=== PATIENT | female | born 2005 | race Caucasian/White ===

== ENCOUNTER 2025-11-17 19:21 | Emergency (ER) | payer BC, SELFPAY ==
--- OUTSIDE RECORDS SUMMARY | 2025-10-16 09:45 | XMS_ITS | Encounter Summary ---
Author Organization [facility] Address [address] [place] [address] Care Team Providers Care Hospitality Host Name Role Phone Elsewhere, Pcp Primary Care Provider Unavailabl e Reason for Visit * ReasonOnset DateCommentsPre-visit Wnniek9510/16/2025 * Appointment Request (Routine) - AuthorizedSpecialtyDiagnoses / Procedures Referred By ContactReferred To ContactOrthopedic Surgery Referral IDStatusReasonStart DateExpiration DateVisits RequestedVisits [id number]/4/202511/ Encounter Details DateTypeDepartmentCare Team (Latest Contact Info)Zcshfttjobn74/25/2025 9:45 AM CSTClinical Communication Virtual Review in [place], [place] [address] [place] [address] Pre-visit Intake Social History Tobacco UseTypesPacks/DayYears UsedDateSmoking Tobacco: NeverPassive Smoke Exposure: CurrentSmokeless Tobacco: NeverAlcohol UseStandard Drinks/WeekComments Never0 (1 standard drink = 0.6 oz pure alcohol)[facility] UtilitiesAnswerDate Recorded In the past 12 months has the electric, gas, oil, or water company threatened to shut off services in your home?No04/20/2025Humiliation, Afraid, Rape, and Kick questionnaireAnswerDate RecordedWithin the last year, have you been afraid of your partner or ex-partner?No04/20/2025Within the last year, have you been humiliated or emotionally abused in other ways by your partner or ex-partner?No 04/20/2025Within the last year, have you been kicked, hit, slapped, or otherwise physically hurt by your partner or ex-partner?No04/20/2025Within the last year, have you been raped or forced to have any kind of sexual activity by your part ner or ex-partner?No04/20/2025Hunger Vital SignAnswerDate RecordedWithin the past 12 months, you worried that your food would run out before you got the money to buymore.Never true04/20/2025Within the past 12 months, the food you bought just didn't last and you didn't have money to get more.Never true 04/20/2025PRAPARE - TransportationAnswerDate RecordedIn the past 12 months, has lack of transportation kept you from medical appointments or from getting medications?No04/20/2025In the past 12 months, has lack of transportation kept you from meetings, work, or from getting things needed for daily living?No 04/20/2025Postpartum DepressionAnswerDate RecordedPHQ-9 Total Score (max 27)2 06/12/2025Housing StabilityAnswerDate RecordedWhat is your living situation today?I have a steady place to live04/20/2025EducationAnswerDate RecordedWhat is the highest level of school you have completed or the highest degree you have received?Associate degree: occupational, technical, or vocational program 2CommentsUnknownSex and Gender InformationValueDate RecordedSex Assigned at PwxcpWfscol70/06/2022 5:37 PM CSTLegal LtiPcdcjx07/04/2018 6:08 PM CDTGender RxueboxiClritn40/06/2022 5:37 PM CSTSexual OrientationStraight 01/25/2022 5:37 PM CSTdocumented as of this encounter Plan of Treatment Not on file documented as of this encounter Visit Diagnoses Not on filedocumented in this encounter Additional Health Concerns AssessmentNoted TimePHQ-9 Depression Total Score: 5:14 PM CDT documented as of this encounter Care Teams Team MemberRelationshipSpecialtyStart DateEnd Date Elsewhere, Pcp PCP - GeneralInternal Medicine03/21/25documented as of this encounter
--- OUTSIDE RECORDS SUMMARY | 2025-10-19 09:13 | XMS_ITS | Encounter Summary ---
Author Organization [facility] Address [address] [place] [address] Care Team Providers Care Filter Worker Name Role Phone Elsewhere, Pcp Primary Care Provider Unavailabl e Reason for Referral * Outpatient (Routine) - ClosedSpecialtyDiagnoses / ProceduresReferred By ContactReferred To Contact Diagnoses Aftercare Developmental Dislocation Hip Dislocation Hip Dysplasia Developmental Left Procedures DX Hip And Pelvis Left 4+ Views Lenin Ugalde M.D. [address] [place] [address] Phone: tel: fax: [facility] Referral IDStatusReasonStart DateExpiration DateVisits RequestedVisits [id number]/4/202511/4/202611 SCALER Reason for Visit * Outpatient (Routine) - ClosedSpecialtyDiagnoses / ProceduresReferred By ContactReferred To Contact Diagnoses Aftercare Developmental Dislocation Hip Dislocation Hip Dysplasia Developmental Left Procedures DX Hip And Pelvis Left 4+ Views Lenin Ugalde M.D. [address] [place] [address] Phone: tel: fax: [facility] Referral IDStatusReasonStart DateExpiration DateVisits RequestedVisits [id number]/4/202511/4/202611 Encounter Details DateTypeDepartmentCare Team (Latest Contact Info)Hcucylztkro91/28/2025 9:13 AM BARK SCALER - 10/19/2025 11:59 PM CSTHospital Encounter Department of Radiology, [facility], in [place], [place] [address] [place] [address] Lenin Ugalde M.D. [address] [place] [address] Aftercare Developmental Dislocation Hip; Dislocation Hip Dysplasia Developmental Left Discharge Disposition: Home or Self Care Social History Tobacco UseTypesPacks/DayYears UsedDateSmoking Tobacco: NeverPassive Smoke Exposure: CurrentSmokeless Tobacco: NeverAlcohol UseStandard Drinks/WeekComments Never0 (1 standard drink = 0.6 oz pure alcohol)[facility] UtilitiesAnswerDate Recorded In the past 12 months has the [employer], gas, oil, or water [employer] threatened to shut off services in your [...] received?Associate degree: occupational, technical, or vocational program 01/25/2022CommentsUnknownSex and Gender InformationValueDate RecordedSex Assigned at DuacrYpsrrh87/06/2022 5:37 PM CSTLegal LxhKtdrvk38/04/2018 6:08 PM CDTGender DretkgxwAxbexv98/06/2022 5:37 PM CSTSexual OrientationStraight 01/25/2022 5:37 PM CSTdocumented as of this encounter Medications at Time of Discharge MedicationSigDispense QuantityRefillsLast FilledStart DateEnd Date acetaminophen (TylenoL) 500 mg tablet Take 2 tablets (1,000 mg total) by mouth every 6 (six) hours as needed for pain. 04/20/2025 celecoxib (CeleBREX) 200 mg capsule Take 1 capsule (200 mg total) by mouth daily. 30 capsule 11/16/2025 10:36 AM CST dextroamphetamine-amphetamine (Adderall) 10 mg tablet Take 10 mg by mouth 2 (two) times a day.08/04/2025 etonogestreL (Nexplanon) 68 mg subdermal implant Inject 1 each under the skin continuously.07/31/2020 hydrOXYzine (Atarax) 25 mg tablet Take 1 tablet (25 mg total) by mouth every 6 (six) hours as needed for anxiety. 6 tablet 04/24/2025 4:42 PM CDT04/24/2025 ondansetron ODT (Zofran-ODT) 8 mg disintegrating tablet Dissolve 8 mg in the mouth as needed for nausea.08/03/2025 oxyCODONE (Roxicodone) 5 mg immediate release tablet Indications:Acute Pain ExceptionTake 1 tablet (5 mg total) by mouth every 4 (four) hours as needed for severe pain or score 7-10 of10. 5 tablet 11/16/2025 10:36 AM CST11/16/2025 propranoloL (InderaL LA) 120 mg 24 hr capsule Take 1 capsule (120 mg total) by mouth daily. 90 capsule sennosides (senna) 8.6 mg tablet Take 1 tablet (8.6 mg total) by mouth daily for 15 days. 100 tablet /08/2026 traMADoL (Ultram) 50 mg tablet Indications:Acute Pain ExceptionTake 1 tablet (50 mg total) by mouth every 6 (six) hours as needed for moderate pain or score 4-6 of 10. 10 tablet 11/16/2025 10:36 AM 11/16/2025 ubrogepant (Ubrelvy) 100 mg tablet tablet Indications:Migraine HeadacheTake 1 tablet (100 mg total) by mouth as needed for migraine. May repeat dose once after at least 2hours if migraine unresolved. Do not exceed 200 mg in 24 hours. Max 8 days per month 10 tablet ibuprofen 200 mg tablet Take 600 mg by mouth every 6 (six) hours as needed for pain.11/17/2025 multivitamin-minerals tablet Take 1 tablet by mouth daily.11/17/2025documented as of this encounter Plan of Treatment Not on file documented as of this encounter Procedures Procedure NamePriorityDate/TimeAssociated DiagnosisCommentsDX HIP AND PELVIS LEFT 4+ VIEWSRAD - Routine (most inpatients and all outpatients)10/19/2025 9:32 AM BARK SCALER Aftercare Developmental Dislocation Hip Dislocation Hip Dysplasia Developmental Left documented in this encounter Results * DX Hip And Pelvis Left 4+ Views (10/19/2025 9:32 AM BARK SCALER)Anatomical Region LateralityModalityLower Extremity, Pelvis, Hip, Musculoskeletal RST LOS, Musculoskeletal ARZ LOS, Muskuloskeletal FLALOSLeftDigital RadiographySpecimen (Source)Anatomical Location / LateralityCollection Method / VolumeCollection TimeReceived Time Impressions 10/19/2025 10:00 AM BARK SCALER Postoperative changes of periacetabular osteotomy left hip with healing changes since 06/21/2025. 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 Postoperative changes in the right hip from right NIRAV. Small osseous fragment lateral to the right femoral head. Narrative 10/19/2025 10:00 AM BARK SCALER EXAM: DX HIP AND PELVIS LEFT 4+ VIEWS Procedure Note Samuel Hobson M.D. - 10/19/2025 EXAM: DX HIP AND PELVIS LEFT 4+ VIEWS IMPRESSION: Postoperative changes of periacetabular osteotomy left hip with healingchanges since 06/21/2025. 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 Small osseousfragment lateral to the right femoral head. Authorizing ProviderResult TypeResult StatusRaangelito Ugalde M.D.IMG DIAGNOSTIC IMAGING PROCEDURESFinal Result documented in this encounter Visit Diagnoses Diagnosis Aftercare Developmental Dislocation Hip Dislocation Hip Dysplasia Developmental Left documented in this encounter Additional Health Concerns AssessmentNoted TimePHQ-9 Depression Total Score: 5:14 PM CDT documented as of this encounter Care Teams Team MemberRelationshipSpecialtyStart DateEnd Date Elsewhere, Pcp PCP - GeneralInternal Medicine03/21/25documented as of this encounter
--- OUTSIDE RECORDS SUMMARY | 2025-10-19 10:45 | XMS_ITS | Encounter Summary ---
Author Organization [facility] Address [address] [place] [address] Care Team Providers Care General Education Professor Name Role Phone Elsewhere, Pcp Primary Care Provider Unavailabl e Reason for Visit * ReasonCommentsPain * Outpatient (Routine) - ClosedSpecialtyDiagnoses / ProceduresReferred By ContactReferred To ContactOrthopedic Surgery Diagnoses Aftercare Developmental Dislocation Hip Dislocation Hip Dysplasia Developmental Left Lenin Ugalde M.D. [address] [place] [address] Phone: tel: fax: Lenin Ugalde M.D. [address] [place] [address] Phone: tel: fax: Referral IDStatusReasonStart DateExpiration DateVisits RequestedVisits [id number]/4/20252/3/202711 Encounter Details DateTypeDepartmentCare Team (Latest Contact Info)Zswfygvxfci55/28/2025 10:45 AM CSTOffice Visit Department of Orthopedic Surgery in [place], [place] [address] [place] [phone] Lenin Ugalde M.D. [address] [place] [phone] Pain Hip Left (Primary Dx); Aftercare Developmental Dislocation Hip; Dislocation Hip Dysplasia Developmental Left Social History Tobacco UseTypesPacks/DayYears UsedDateSmoking Tobacco: NeverPassive Smoke Exposure: CurrentSmokeless Tobacco: NeverAlcohol UseStandard Drinks/WeekComments Never0 (1 standard drink = 0.6 oz pure alcohol)[facility] UtilitiesAnswerDate Recorded In the past 12 [...] 2CommentsUnknownSex and Gender InformationValueDate RecordedSex Assigned at SsddjSomxea12/06/2022 5:37 PM CSTLegal YulForons97/04/2018 6:08 PM CDTGender VhuwjhzsLcdqry32/06/2022 5:37 PM CSTSexual OrientationStraight 01/25/2022 5:37 PM CSTdocumented as of this encounter Consult Notes * Lenin Ugalde M.D. - 10/19/2025 10:45 AM CST SUBJECTIVE REASON FOR VISIT Post NIRAV follow-up evaluation HISTORY OF PRESENT ILLNESS Cyndee Martin is a 20 y.o. female who presents 6 months from left periacetabular osteotomy. Doing great. Pain reported: Minimal. OBJECTIVE PHYSICAL EXAM General: Awake and alert. No acute distress Skin: Well-healed incision Neurologic: 5/5 hip flexion, 5/5 quad strength no numbness. Extremities: About 20?? of internal rotation bilaterally. This is a 90?? IMAGING Plain radiographs show healed periacetabular osteotomy ASSESSMENT / PLAN Doing very well. Strength has returned 100%. No numbness. We will return to all activities as tolerated. She will call to set up hardware removal when ready. We had a good discussion regarding ongoing care, activity recommendations, and follow-up. All questions were answered. ER/WAITRESS BAR documented in this encounter Miscellaneous Notes * Addendum Note - Daja Berry R.N. - 10/19/2025 10:45 AM CSTAddended by: DAJA BERRY on: 10/19/2025 03:36 PM Modules accepted: Orders ER/WAITRESS BAR documented in this encounter Plan of Treatment Not on file documented as of this encounter Visit Diagnoses Diagnosis Pain Hip Left- Primary Aftercare Developmental Dislocation Hip Dislocation Hip Dysplasia Developmental Left documented in this encounter Additional Health Concerns AssessmentNoted TimePHQ-9 Depression Total Score: 5:14 PM CDT documented as of this encounter Care Teams Team MemberRelationshipSpecialtyStart DateEnd Date Elsewhere, Pcp PCP - GeneralInternal Medicine03/21/25documented as of this encounter
--- OUTSIDE RECORDS SUMMARY | 2025-11-16 05:44 | XMS_ITS | Encounter Summary ---
Author Organization [facility] Address [address] [place] [address] Care Team Providers [facility] Owner Name Role Phone Elsewhere, Pcp Primary Care Provider Unavailabl e Reason for Visit * Auth/Cert (Routine)SpecialtyDiagnoses / ProceduresReferred By ContactReferred To Contact Diagnoses Aftercare Removal Orthopedic Hardware Postop Non-Injury Aftercare Removal Orthopedic Hardware Postop Non-Injury [Z47.2] Procedures ND RMVL IMPLANT DEEP REMOVAL HARDWARE PELVIS Lenin Ugalde M.D. [address] [place] [address] Phone: tel: fax: Referral IDStatusReasonStart DateExpiration DateVisits RequestedVisits [id number] Encounter Details DateTypeDepartmentCare Team (Latest Contact Info)Whipqbtmsxy31/26/2025 5:44 AM ELEMENTARY SCHOOL MUSIC TEACHER - 11/17/2025 12:03 PM CSTHospital Encounter [facility], [facility] Floor [address] [place] [address] Johnnie Hong M.D. [address] [place] [address] Discharge Disposition: Home or Self Care Social History Tobacco UseTypesPacks/DayYears UsedDateSmoking Tobacco: NeverPassive Smoke Exposure: CurrentSmokeless Tobacco: NeverAlcohol UseStandard Drinks/WeekComments Never0 (1 standard drink = 0.6 oz pure alcohol)Humiliation, Afraid, Rape, and Kick questionnaireAnswerDate RecordedWithin the last year, have you been afraid of your partner or ex-partner?No11/16/2025Within the last year, have you been humiliated or emotionally abused in other ways by your partner or ex-partner?No 11/16/2025Within the last year, have you been kicked, hit, slapped, or otherwise physically hurt by your partner or ex-partner?No11/16/2025Within the last year, have you been raped or forced to have any kind of sexual activity by your part ner or ex-partner?No11/16/2025Hunger Vital SignAnswerDate RecordedWithin the past 12 months, you worried that your food would run out before you got the money to buymore.Never true11/16/2025Within the past 12 months, the food you bought just didn't last and you didn't have money to get more.Never true 11/16/2025PRAPARE - TransportationAnswerDate RecordedIn the past 12 months, has lack of transportation kept you from medical appointments or from getting medications?No11/16/2025In the past 12 months, has lack of transportation kept you from meetings, work, or from getting things needed for daily living?No 11/16/2025HC UtilitiesAnswerDate RecordedIn the past 12 months has the [employer], gas, oil, or water company threatened to shut off services in your home?No11/16/2025Postpartum DepressionAnswerDate RecordedPHQ-9 Total Score (max 27)Housing StabilityAnswerDate RecordedWhat is your living situation today?I have a steady place to live11/16/2025EducationAnswerDate RecordedWhat is the highest level of school you have completed or the highest degree you have received?Associate degree: occupational, technical, or vocational program 2CommentsNoSex and Gender InformationValueDate RecordedSex Assigned at JhuahAedyad96/06/2022 5:37 PM CSTLegal UzyVnnykl39/04/2018 6:08 PM CDTGender FiufpdnlFpnjvw34/06/2022 5:37 PM CSTSexual OrientationStraight 01/25/2022 5:37 PM CSTdocumented as of this encounter Last Filed Vital Signs Vital SignReadingTime TakenCommentsBlood Rtkerkex999/80101/18/2025 11:26 AM ELEMENTARY SCHOOL MUSIC TEACHER Imxiu300711/17/2025 11:26 AM TROVtqenchypyq08.8 ??C (98.2 ??F)11/17/2025 9:50 AM CSTRespiratory Xjee445601/18/2025 11:26 AM CSTOxygen Llpebrofxa25%11/17/2025 11:26 AM CSTInhaled Oxygen Concentration--Poacem42.3 kg (196 lb 13.9 oz)11/16/2025 6:52 AM SHKVlrbjh639 cm (5' 2.6)11/16/2025 6:52 AM CSTBody Mass Index35.32 11/16/2025 6:52 AM CSTdocumented in this encounter Functional Status * Patient VerificationQuestionAnswerDate of AssessmentAuthorBlood transfusion or in past 5 months?No11/16/2025 7:03 AM Fiordaliza Scott RRosoeveltNRoosevelt Beta David AdministeredNot xdpztvhoon15/26/2025 7:03 AM Fiordaliza Scott RDev. * Obstructive Sleep Apnea ScreenQuestionAnswerDate of AssessmentAuthorPatient has a diagnosis of obstructive sleep apnea? 7:03 AM Fiordaliza Scott RRooseveltNRoosevelt * Vital SignsQuestionAnswerDate of AssessmentAuthorRichmond Agitation Sedation Scale (RASS) 11:26 AM Priya Morales R.N. * Ananda ScaleQuestionAnswerDate of AssessmentAuthorSensory Perceptions4 11/17/2025 7:57 AM Priya Morales R.N.Qldylnhg963/27/2025 7:57 AM ELEMENTARY SCHOOL MUSIC TEACHER Priya Edwards R.N.Rjzlzwau217/27/2025 7:57 AM Priya Morales R.N. Tgkrvfzm886/27/2025 7:57 AM Priya Morales R.N.Svpczfnzd127/27/2025 7:57 AM Priya Morales R.N.Friction and Qnuxf11301/18/2025 7:57 AM Priya Morales R.N.Ananda Scale Vevem332011/17/2025 7:57 AM Priya Morales R.N. * Psychiatric Advance DirectiveQuestionAnswerDate of AssessmentAuthorAdvance DirectivePatient does not have advance directive, does not want information 11/16/2025 7:00 PM Fiordaliza Peter R.N. * Suicide RiskQuestionAnswerDate of AssessmentAuthorIs patient at risk for suicide?No11/16/2025 7:03 AM Fiordaliza Scott R.N. * Delirium Triage Screen (DTS)QuestionAnswerDate of AssessmentAuthorAsk the patient to spell LUNCH backwards.0-1 error - DTS negative. End of assessment.11/17/2025 7:57 AM Priya Morales R.N. * Activity/MobilityQuestionAnswerDate of AssessmentAuthorPreventative Skin ActionOther (Comment)11/17/2025 7:57 AM Priya Morales R.N. * HygieneQuestionAnswerDate of AssessmentAuthorOral CareBrush teeth11/16/2025 10:03 PM Dilia Gaitan * Assistive DevicesQuestionAnswerDate of AssessmentAuthorAssistive Devices Dudxenvsju70/26/2025 7:03 AM Fiordaliza Scott R.N. * NPOQuestionAnswerDate of AssessmentAuthorTime of last wiifjg0429699/26/2025 6:55 AM Fiordaliza Scott R.N.Date of last xffjru7377860/26/2025 6:55 AM Fiordaliza Scott R.N.Date of last kmtpk9269232/26/2025 6:55 AM Fiordaliza Ashraf R.N.Time of last ijgfz5696047/26/2025 6:55 AM CSTHamilton, Fiordaliza S, R.N. * Height and WeightQuestionAnswerDate of AssessmentAuthorBMI (Calculated)35.3 11/16/2025 6:52 AM Fiordaliza Scott R.N. * Tobacco useQuestionAnswerDate of AssessmentAuthorHave you smoked any form of tobacco in the last 30 days?No11/16/2025 7:03 AM Fiordaliza Scott R.N. * STOP-BANG QuestionnaireQuestionAnswerDate of AssessmentAuthorDo you snore loudly (loud enough to be heard through closed doors or your bed-partner elbows you for snoring at night)? 7:03 AM Fiordaliza Scott RRooseveltN.Do you often feel tired, fatigued, or sleepy during the daytime (such as falling asleep during driving or talking to someone)? 7:03 AM Fiordaliza Ashraf R.N.Has anyone observed you stop breathing or choking/gasping during your sleep? 7:03 AM Fiordaliza Scott RRooseveltN.Do you have or are being treated for high blood pressure? 7:03 AM Fiordaliza Scott R.N.Body Mass Index more than 35 kg/m2? 7:03 AM Fiordaliza Scott RRooseveltN.Age older than 50? 7:03 AM Fiordaliza Ashraf RRooseveltN.Is your shirt collar 16 inches/40cm or larger?0 11/16/2025 7:03 AM Fiordaliza Scott RRooseveltN.Gender = Male? 7:03 AM Fiordaliza Scott RRooseveltNRooseveltSTOP-BANG Total Bkipc30101/17/2025 7:03 AM Fiordaliza Ashraf RRooseveltN. * Modified Angeles ScoreQuestionAnswerDate of AssessmentAuthorMotor Activity2 11/16/2025 11:32 AM Laure Higuera R.N.Ivjwfhixhvm439/26/2025 11:32 AM Laure Higuera R.N.Llqkzshzswqay456/26/2025 11:32 AM Laure Higuera R.N.Oxygen Oxdvwfsxeq847/26/2025 11:32 AM Laure Higuera R.N.Modified Angeles Pztff4249/26/2025 11:32 AM Laure Higuera R.N.Systolic BP2 11/16/2025 11:32 AM Laure Higuera R.N. * Abuse IndicatorsQuestionAnswerDate of AssessmentAuthorIs there a history, concern, or exposure to physical, emotional, sexual, financial abuse, neglect or domestic violence?No11/16/2025 7:03 AM Fiordaliza Scott R.N. Information IdgjbaIzuajjj00/26/2025 7:03 AM Fiordaliza Scott R.N. * BMI: Desirable <25, High Risk >30AnswerDate of UkpctgyuyaVknaxcPkpo72/26/2025 6:52 AM Fiordaliza Scott R.N. * Fall RiskQuestionAnswerDate of AssessmentAuthorHave you fallen within the last year or do you fear you might fall?Yes11/16/2025 7:05 AM Fiordaliza Scott R.N. * Bedside Mobility Assessment Tool (BMAT)QuestionAnswerDate of AssessmentAuthor Mobility Level (calculated)Mobility Level 7:57 AM Priya Morales R.N.Mobility Assessment Level 1: Sit and BdxkkFzcc42/27/2025 7:57 AM Priya Morales R.N.Mobility Assessment Level 2: Stretch and PointPass 11/17/2025 7:57 AM Priya Morales R.N.Mobility Assessment Level 3: Stand Pass11/17/2025 7:57 AM Priya Morales R.N.Mobility Assessment Level 4: Modified AtwkjlypckotZxxj34/27/2025 7:57 AM Priya Morales R.N.Mobility Level 3 DevicesL3 - Gait belt;L3 - Kjsdlh6311/17/2025 7:57 AM Priya Morales R.N. * Additional Fall Risk IndicationQuestionAnswerDate of AssessmentAuthor Clinically assessed at higher fall risk?No11/17/2025 7:57 AM Priya Morales R.N. * Pain AssessmentQuestionAnswerDate of AssessmentAuthorResponse to Interventions Reports no side tqalhxk9011/17/2025 5:14 AM Dilia Gaitan LocationHip 11/16/2025 11:08 AM Erika Maldonado R.N., C.M.S.R.N.Pain Orientation Left11/16/2025 11:08 AM Erika Maldonado R.N., C.M.S.R.N.Pain InterventionsMedication (See MAR)11/17/2025 11:18 AM Priya Morales R.N. Patient's Stated Pain Zqar52401/17/2025 7:35 PM Dilia Gaitan Type Surgical pain11/16/2025 11:08 AM Erika Maldonado R.N., C.M.S.R.N. * Pain ScoreAnswerDate of OflfuckkuwNgjpow928/27/2025 11:18 AM Priya Morales R.N. * Sedation ScalesQuestionAnswerDate of AssessmentAuthorSedation Scale Used Hernandez Agitation Sedation Scale11/17/2025 7:57 AM Priya Morales R.N. * Kaley Maya Fall Risk Assessment ScaleQuestionAnswerDate of AssessmentAuthor Last Known Lppj67001/18/2025 7:57 AM Priya Morales R.N.Mobility0 11/17/2025 7:57 AM Priya Morales R.N.Ttdcilqvidp446/27/2025 7:57 AM Priya Jack R.N.Mental Status/LOC/Wjphbrmez093/27/2025 7:57 AM Priya Jack R.N.Toileting Ptndb45101/18/2025 7:57 AM Priya Morales R.N.Volume/Electrolyte Fncara947/27/2025 7:57 AM Priya Morales R.N. Communication/Rpviypo428 7:57 AM Priya Morales R.N.Behavior0 11/17/2025 7:57 AM Priya Morales R.N.[facility] Fall Risk Total6 11/17/2025 7:57 AM Priya Morales R.N. * Fall Risk Scale and AssessmentsQuestionAnswerDate of AssessmentAuthorFall Risk ScaleMarblehead Francesco11/17/2025 7:57 AM Priya Morales R.N. * Patient PreparationQuestionAnswerDate of AssessmentAuthorPre-Procedure Prep Antimicrobial shower/wipes complete in AM;Antimicrobial shower/wipes complete in PM11/16/2025 7:03 AM Fiordaliza Scott R.N. * Early Screen for Discharge PlanningQuestionAnswerDate of AssessmentAuthorSelf- rated Walking Ydzyqicppn984/26/2025 7:05 PM Fiordaliza Peter R.N.Age in Mfmfy33201/17/2025 7:05 PM Fiordaliza Peter R.N.Prior Living Status3 11/16/2025 7:05 PM Fiordaliza Peter R.N.[place] Disability Score0 11/16/2025 7:05 PM Fiordaliza Peter R.N.ESDP Bqcwq94701/17/2025 7:05 PM Fiordaliza Peter R.N. * Exparel?? / Zynrelef??QuestionAnswerDate of AssessmentAuthorHave you had a procedure outside of [facility] in the past 4 days? (Select Yes if the patient iswearing an Exparel?? or a Zynrelef?? armband.)No11/16/2025 7:03 AM Fiordaliza Scott R.N. * Fall Prevention InterventionsQuestionAnswerDate of AssessmentAuthorUniversal Fall Precautions in PdtwqCsm16/27/2025 7:57 AM Priya Morales R.N. Medication InterventionsDangle at ewaugql5311/17/2025 7:57 AM Priya Morales R.N.Communication/Sensory InterventionsAmbient light11/17/2025 7:57 AM Priya Morales R.N.Last Known Fall IasjauwmpjfbwTGI40/27/2025 7:57 AM Priya Morales R.N. * Delirium Prediction Tool ScoreQuestionAnswerDate of AssessmentAutrDelicape fear/harnett health Surgical Score (Commercial Teller Use Only)0.02101/18/2025 6:00 AM CSTSystem, Provider Not In documented as of this encounter Mental Status * Brayan Coma ScaleQuestionAnswerEntry DateAuthorEye Fpqqopm447/27/2025 7:57 AM Priya Morales R.N.Best Motor Gshknyve552/27/2025 7:57 AM Priya Morales R.N.Best Verbal Soughexq993/27/2025 7:57 AM Priya Morales R.N. Brayan Coma Scale Ygmzr4446/27/2025 7:57 AM Priya Morales R.N. documented in this encounter Discharge Summaries * Nga Ludwig M.D. - 11/17/2025 7:29 AM CST DISCHARGE SUMMARY BRIEF OVERVIEW Hospital: [facility] Discharge Provider: Johnnie Hong M.D. Primary Team: [facility] Orthopedic Surgery - [facility] Primary Care Providers: Elsewhere, Pcp (General) No address on file Primary Care Provider Phone Number: None Primary Care Provider Fax Number: None Other Providers: None Admission Date: 11/16/2025 Discharge Date: 11/17/2025 PRINCIPAL DIAGNOSIS Removal of hardware, pelvis SECONDARY DIAGNOSES Urinary retention - patient admitted for urinary retention postop. Has history of this issue with post-anesthesia care. Voiding on her own by POD1 AM. Surgery Information This Encounter Past Procedures (11/17/2024 to Today) Date Procedures Providers Loc / Dept 11/16/2025 REMOVAL HARDWARE PELVIS. Johnnie Hong M.D.Ray, Gabrielle S, M.D. [facility] OR DISCHARGE DISPOSITION Home or Self Care [1] ACTIVE ISSUES REQUIRING FOLLOW UP None OUTPATIENT FOLLOW UP For appointment details refer to your Patient Appointment Guide. TEST RESULTS PENDING AT DISCHARGE Pending Labs None DETAILS OF HOSPITAL STAY REASON FOR ADMISSION Aftercare Removal Orthopedic Hardware Postop Non-Injury Pain Hip Left HOSPITAL COURSE Surgery Information This Encounter Past Procedures (11/17/2024 to Today) Date Procedures Providers Loc / Dept 11/16/2025 REMOVAL HARDWARE PELVIS. Johnnie Hong M.D.Ray, Gabrielle S, M.D. [facility] OR Cyndee Ratliff Veronica was taken to the operative room by Johnnie Hong,* for the procedure listed above. The intraoperative as well as the immediate postoperative course were uncomplicated. Forfurther details of the surgery please see the operative note. The patient was transferred from the PACU to the general care floor for continued observation and monitoring. She progressed in the usual post-operative fashion without complications. The patient was treated with perioperative IV antibiotics. She was given liquids by mouth and eventually advanced as tolerated towards a more general diet. Her pain was well controlled with oral pain medications. Physical therapy / Occupational therapy was consulted for assistance with mobilization and gait training. She was mobilizing without difficulty and was compliant with any activity restrictions. Her incision remained intact with no concerns. Her bowel and bladder function were acceptable. She then met criteria for discharge and was later dismissed from the hospital. For any further details please see the [facility] orthopedic surgery progress note and any other co-managing teams dated 11/17/2025. CONSULTS ORDERED DURING THIS ADMISSION None CONDITION AT DISCHARGE stable Discharge instructions were provided to the patient and caregiver(s). Total time spent in discharge services today: 20 minutes. ENTARY SCHOOL MUSIC TEACHER ENTARY SCHOOL MUSIC TEACHER documented in this encounter Discharge Instructions * Attachments The following attachments cannot be sent through Care Everywhere. * Celecoxib (By mouth) (Dutch) * Oxycodone, Rapid Release (By mouth) (Dutch) * Senna (By mouth) (Dutch) * Tramadol (By mouth) (Dutch) documented in this encounter Medications at Time of Discharge MedicationSigDispense QuantityRefillsLast FilledStart DateEnd Date acetaminophen (TylenoL) 500 mg tablet Take 2 tablets (1,000 mg total) by mouth every 6 (six) hours as needed for pain. 04/20/2025 celecoxib (CeleBREX) 200 mg capsule Take 1 capsule (200 mg total) by mouth daily. 30 capsule 11/16/2025 10:36 AM [facility] dextroamphetamine-amphetamine (Adderall) 10 mg tablet Take 10 [...] 7-10 of10. 5 tablet 11/16/2025 10:36 AM [facility]11/16/2025 propranoloL (InderaL LA) 120 mg 24 hr [...] of 10. 10 tablet 11/16/2025 10:36 AM [facility]11/16[facility]2025 ubrogepant (Ubrelvy) 100 mg tablet tablet Indications:Migraine HeadacheTake 1 tablet (100 mg total) by mouth as needed for migraine. May repeat dose once after at least 2hours if migraine unresolved. Do not exceed 200 mg in 24 hours. Max 8 days per month 10 tablet documented as of this encounter Progress Notes * Gonsalo Holman M.S., O.T. - 11/17/2025 8:23 AM CST Spoke with patient at bedside this morning. Patient was already dressed in which she reported she had completed independently. Patient had no concerns with return to completing ADL/IADL independently. No concerns reported for homegoing, has adequate support from family upon return home. OT will sign off at this time. Trista Holman M.S., O.T. ENTARY SCHOOL MUSIC TEACHER * Nga Ludwig M.D. - 11/17/2025 7:25 AM CST SUBJECTIVE HISTORY OF PRESENT ILLNESS Patient doing well on examination. Pain well-controlled on current multimodal regimen. Took 1 oxycodone for pain control. Ambulating without issue. Was admitted overnight because could not void postoperatively; this happened in her last postop course and has a history of retention post-anesthesia. She has now just voided on her own this AM ykihg395mc. She is pleased she was able to regain the ability to void. OBJECTIVE VITAL SIGNS Temperature: [36.4 ??C-37 ??C] 36.7 ??C Heart Rate: [64-80] 80 Resp Rate: [11-17] 16 Blood Pressure: (106-132)/(60-94) 106/60 SpO2: [94 %-100 %] 97 % Flow Rate (L/min): [0 L/min] 0 L/min Pulse Rate: [49-72] 69 I/O last 3 completed shifts: In: 1955.7 [P.O.:986] Out: 3155 [Urine:3150; Blood:5] PHYSICAL EXAMINATION General: NAD. Neuro: Alert. Answers questions appropriately. Cardiovascular: Regular rate. Respiratory: Regular respiratory rate. Normal work of breathing. Musculoskeletal: On examination of the operative lower extremity, surgical dressings clean, dry, and intact without strikethrough. Fires quadriceps, tibialis anterior, EHL, EDL, FHL, FDL, gastrocsoleus complex, and peroneals. Sensation intact to gross light touch in the deep peroneal, superficial pe roneal, tibial, saphenous, and sural distributions. Bilateral calves are soft and nontender. Toes warm and well-perfused with capillary refill less than 2 sec. Palpable dorsalis pedis pulse. DIAGNOSTICS Recent Labs 11/16/25 0655 WBC 8.1 HGB 13.6 HCT 39.5 MCV 83.9 PLT 340 Recent Labs 11/16/25 0655 CREATININE 0.66 No results for input(s): INR, PT in the last 48 hours. No results for input(s): SEDRATE, CRP in the last 48 hours. ASSESSMENT / PLAN SURGICAL DIAGNOSIS/PROCEDURE(S): S/p removal of hardware, pelvis ACTIVE ISSUES: 1) urinary retention - appreciate urology assistance as urology techs continue to help with methodsto assist voiding. Activity/Weightbearing: WBAT operative lower extremity VTE Prophylaxis: SCDs; ASA 81mg PO BID x 6 weeks following surgery Antibiotics: Completed periop Dressing: Managed by service Imaging: Completed POD #0 Pain: Multimodal regimen per orders Diet: Discharge Diet for Adults Adult Diet Regular Anticipated Disposition: Home DC today Nga Ludwig M.D. Please contact the SpeakingPal service with any questions or concerns regarding this patient. If outside of 06:00 - 18:00 on weekdays or any time on the weekend, please contact the Orthopedic Surgery house resident insulation worker interior surface at [phone]. ENTARY SCHOOL MUSIC TEACHER * Francisca Morgan Pharm.DRoosevelt, R.Ph., BCPS - 11/16/2025 8:29 PM CST Images from the original note were not included. Admission Medication History Note Adherence issues: No concerns Medication list source: Patient, Family member, and Pharmacy or dispense records Medication related information: - Adderall is morning and early afternoon dosing - multivitamin is hair/skin/nails formula Prior to Admission Medications Med List Status: Pharmacy/RN Complete Set By: Francisca Morgan Pharm.D., R.Ph., BCPS at 11/16/2025 8:26 PM Taking? Last Dose Informant Start Date End Date LT acetaminophen (TylenoL) 500 mg tablet Past Month -- 04/20/25 -- Take 2 tablets (1,000 mg total) by mouth every 6 (six) hours as needed for pain. dextroamphetamine-amphetamine (Adderall) 10 mg tablet 11/15/2025 at Evening -- 08/04/25 -- Take 10 mg by mouth 2 (two) times a day. etonogestreL (Nexplanon) 68 mg subdermal implant -- -- 07/31/20 -- Inject 1 each under the skin continuously. hydrOXYzine (Atarax) 25 mg tablet More than a month -- 04/24/25 -- Take 1 tablet (25 mg total) by mouth every 6 (six) hours as needed for anxiety. ibuprofen 200 mg tablet More than a month -- -- -- Take 600 mg by mouth every 6 (six) hours as needed for pain. multivitamin-minerals tablet 11/15/2025 -- -- -- Take 1 tablet by mouth daily. ondansetron ODT (Zofran-ODT) 8 mg disintegrating tablet Past Month -- 08/03/25 -- Dissolve 8 mg in the mouth as needed for nausea. propranoloL (InderaL LA) 120 mg 24 hr capsule 11/16/2025 at Morning -- 03/21/25 -- Take 1 capsule (120 mg total) by mouth daily. ubrogepant (Ubrelvy) 100 mg tablet tablet Past Month -- 03/21/25 -- Take 1 tablet (100 mg total) by mouth as needed for migraine. May repeat dose once after at least 2hours if migraine unresolved. Do not exceed 200 mg in 24 hours. Max 8 days per month ENTARY SCHOOL MUSIC TEACHER * Ramy Perez P.T., D.P.T. - 11/16/2025 11:06 AM CST PT visited with the patient following hardware removal of the left hip. Patient demonstrated good command of ambulation and stair navigation and required no cuing or assistance for any mobility task.No skilled therapy was provided during today's session. She appears safe for physical therapy discharge and PT orders will be discontinued. Should patient's functional status change please reconsult as needed. Ramy Perez, PT, DPT ENTARY SCHOOL MUSIC TEACHER documented in this encounter OR Notes * Op Note - Johnnie Hong M.D. - 11/16/2025 8:46 AM CST PROCEDURE: Left pelvic hardware removal. SURGEON: Johnnie Hong M.D. SENIOR RUBY DEVELOPER: Nga Ludwig M.D. ANESTHESIA: Attended local. PRE-OPERATIVE DIAGNOSIS Previous dysplastic hip. Previous pelvic osteotomy. POST-OPERATIVE DIAGNOSIS Previous dysplastic hip. Previous pelvic osteotomy. A assistant golf coach actively participated and was necessary for one or more of the following: opening, exposure and visualization during the case, maintaining hemostasis, wound closure resulting in itssafe and expeditious completion. FINDINGS Previous dysplastic hip. Previous pelvic osteotomy. BLOOD LOSS: Minimal. DRAINS: None. SPECIMENS: None. OPERATIVE NOTE NARRATIVE Patient was brought to the operating room. Anesthesia was induced. The left hip was prepped and draped in the usual fashion, and under sterile conditions, we made incision in the anterior aspect of the pelvis, went deep to the fascia, and found the 3 screws. The screws were removed without difficulty. The wound was irrigated. Local anesthetic block was placed. We used 0 Vicryl in the deep tissue,Monocryl on the skin. Steri-Strips and a sterile dressing were applied. Patient was brought to the recovery room in satisfactory condition. Postop x- rays confirmed complete hardware removal. TPR: 3, Incision, removal of screws, majority of closure Johnnie Hong M.D. CT CT Job ID: [id number] ENTARY SCHOOL MUSIC TEACHER documented in this encounter Miscellaneous Notes * Hospital Course - Nga Ludwig M.D. - 11/17/2025 7:29 AM CST Surgery Information This Encounter Past Procedures (11/17/2024 to Today) Date Procedures Providers Loc / Dept 11/16/2025 REMOVAL HARDWARE PELVIS. Johnnie Hong M.D.Nga Ludwig M.D. [facility] Cyndee Evy Martin was taken to the operative room by Jonhnie Hong,* for the procedure listed above. The intraoperative as well as the immediate postoperative course were uncomplicated. Forfurther details of the surgery please see the operative note. The patient was transferred from the PACU to the general care floor for continued observation and monitoring. She progressed in the usual post-operative fashion without complications. The patient was treated with perioperative IV antibiotics. She was given liquids by mouth and eventually advanced as tolerated towards a more general diet. Her pain was well controlled with oral pain medications. Physical therapy / Occupational therapy was consulted for assistance with mobilization and gait training. She was mobilizing without difficulty and was compliant with any activity restrictions. Her incision remained intact with no concerns. Her bowel and bladder function were acceptable. She then met criteria for discharge and was later dismissed from the hospital. For any further details please see the [facility] orthopedic surgery progress note and any other co-managing teams dated 11/17/2025. [employer] documented in this encounter Plan of Treatment Not on file documented as of this encounter Procedures Procedure NamePriorityDate/TimeAssociated DiagnosisCommentsADULT OXYGEN THERAPY Kgozykc8911/16/2025 8:33 AM CSTDX PELVIS 1-2 VIEWSRAD - Routine (most inpatients and all outpatients)11/16/2025 8:32 AM [employer]LE[employer]ER ANTIBODY QYPBLCHWKFXZFCANDQ44/26/2025 6:55 AM [employer] CBC WITHOUT DIFFERENTIAL, BSTAT101/17/2025 6:55 AM [employer]ER TYPE AND NMFIPAYOJL65/26/2025 6:55 AM [employer]ER CREATININE WITH EGFR, S/PSTAT101/17/2025 6:55 AM [employer]ER documented in this encounter Results * DX Pelvis 1-2 Views (11/16/2025 8:32 AM ELE[employer]ER)Anatomical RegionLaterality ModalityPelvis, Musculoskeletal RST LOS, Musculoskeletal ARZ LOS, Muskuloskeletal FLA LOSN/ADigital RadiographySpecimen (Source)Anatomical Location / LateralityCollection Method / VolumeCollection TimeReceived Time Impressions 11/16/2025 8:49 AM [employer] Screws have been removed from the pelvis since 10/19/2025. No residual hardware seen. Left periacetabular osteotomy. 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 Narrative 11/16/2025 8:49 AM [employer] EXAM: DX PELVIS 1-2 VIEWS Procedure Note Shola Bess M.D. - 11/16/2025 EXAM: DX PELVIS 1-2 VIEWS IMPRESSION: Screws have been removed from the pelvis since 10/19/2025. No residualhardware seen. Left periacetabular osteotomy. Mild arthritic changes ofboth hips with cam morphology. Authorizing ProviderResult TypeResult Martha Ugalde M.D.[facility] DIAGNOSTIC IMAGING PROCEDURESFinal Result * Antibody Identification, Erythrocytes (11/16/2025 6:55 AM ELE[employer]ER)ComponentValue Ref RangeTest MethodAnalysis TimePerformed AtPathologist SignatureAntibody IdentificationNo antibody wbmdifwu48/26/2025 9:51 AM CSTDTLSpecimen (Source) Anatomical Location / LateralityCollection Method / VolumeCollection Time Received Time11/16/2025 6:55 AM CST11/16/2025 7:40 AM [employer] Narrative [facility] - 11/16/2025 9:51 AM [employer]ER Specimen Information: Specimen ID: [id number] Specimen Collection Start Date: 11/16/2025 ??6:55 AM Specimen Received Date: 11/16/2025 ??7:40 AM Specimen ID: [id number] Specimen Collection Start Date: 11/16/2025 ??6:55 AM Specimen Received Date: 11/16/2025 ??7:40 AM Authorizing ProviderResult TypeResult Martha Ugalde M.D.LAB BLOOD BANK TEST ORDERABLESFinal ResultPerforming OrganizationAddressCity/State/ZIP Code Phone Number [facility] [address] [place] [address], [facility] [place] [address] * Type and Screen (with Reflex Antibody ID) (11/16/2025 6:55 AM [employer])Component ValueRef RangeTest MethodAnalysis TimePerformed AtPathologist SignatureABORhO PosNot yigpfjjwmr74/26/2025 8:15 AM CSTETRMAntibody ScreenPositiveNegative 11/16/2025 8:46 AM CSTETRMType & Screen Ceyzuzbrxs13/29/2025 23:5911/16/2025 8:15 AM CSTETRMTesting LocationRoche[place] DEFAULT 11/16/2025 7:40 AM CSTETRMSpecimen (Source)Anatomical Location / Laterality Collection Method / VolumeCollection TimeReceived TimeBlood (Blood, Venous) 11/16/2025 6:55 AM CST11/16/2025 7:40 AM [employer] Narrative Authorizing ProviderResult TypeResult StatusLenin Ugalde M.D.LAB BLOOD BANK TEST ORDERABLESFinal ResultPerforming OrganizationAddressCity/State/ZIP Code Phone Number [facility] [address] [place] [address], [facility] ETRM [facility] [address] [place] [address] * CBC without Differential (11/16/2025 6:55 AM [employer])ComponentValueRef RangeTest MethodAnalysis TimePerformed AtPathologist NjltgzkhkWcettrajtb11.611.6 - 15.0 g/dL11/16/2025 7:25 AM SMYCAQHDvyjnmjmdq92.535.5 - 44.9 %11/16/2025 7:25 AM CSTMETHErythrocytes4.713.92 - 5.13 x10(12)/L101/17/2025 7:25 AM GUPWOADORX92.9 78.2 - 97.9 fL11/16/2025 7:25 AM CSTMETHRBC Distrib Width12.712.2 - 16.1 % 11/16/2025 7:25 AM CSTMETHPlatelet Jeqej233610 - 371 x10(9)/L101/17/2025 7:25 AM CSTMETHLeukocytes8.13.4 - 9.6 x10(9)/L101/17/2025 7:25 AM CSTMETHSpecimen (Source)Anatomical Location / LateralityCollection Method / VolumeCollection TimeReceived TimeBlood (Blood, Venous)11/16/2025 6:55 AM CST11/16/2025 7:22 AM [employer] Narrative Authorizing ProviderResult TypeResult Martha Ugalde M.D.LAB BLOOD ADD-ON Final ResultPerforming OrganizationAddressCity/State/ZIP CodePhone Number [facility] [address] [place] [address], [address] [address] * Creatinine with Estimated GFR (11/16/2025 6:55 AM [employer])ComponentValueRef Range Test MethodAnalysis TimePerformed AtPathologist SignatureCreatinine0.660.59 - 1.04 mg/dL11/16/2025 8:03 AM CSTMETHEstimated GFR (eGFR)>90>=60 mL/min/BSA 11/16/2025 8:03 AM CSTMETHComment: Estimated GFR calculated using the 2020 CKD_EPI creatinine equation. Specimen (Source)Anatomical Location / LateralityCollection Method / Volume Collection TimeReceived TimeBlood (Blood, Venous)11/16/2025 6:55 AM [employer]ER 11/16/2025 7:22 AM [employer]ER Narrative Authorizing ProviderResult TypeResult Martha Ugalde M.D.LAB BLOOD ADD-ON Final ResultPerforming OrganizationAddressCity/State/ZIP CodePhone Number [facility] [address] [place] [address], [facility] [address] [place] [address] documented in this encounter Visit Diagnoses Diagnosis Dysplasia Hip Acquired Left- Primary documented in this encounter Admitting Diagnoses Diagnosis Dysplasia Hip Acquired Left documented in this encounter Administered Medications Medication OrderMAR ActionAction DateDoseRateSite acetaminophen tablet 1,000 mg (TylenoL) 1,000 mg, oral, Once, On Wed11/16/25 at 0745, For 1 dose, Pre-Op Given11/16/2025 7:23 AM CST1,000 mg acetaminophen tablet 1,000 mg (TylenoL) 1,000 mg, oral, Every 6 hours, First dose on Wed11/16/25 at 1800 Given11/17/2025 11:18 AM CST1,000 udObcii9011/17/2025 5:05 AM CST1,000 mgGiven 11/16/2025 11:35 PM CST1,000 mg aprepitant injection 32 mg (Aponvie) 32 mg, intravenous, Once, On Wed11/16/25 at 0745, For 1 dose, Pre-Op, Restriction Criteria (Pharmacy will review and approve if criteria met): Meet restriction criteria Given11/16/2025 7:23 AM CST32 mg aspirin chewable tablet 81 mg 81 mg, oral, 2 times daily, First dose on Wed11/16/25 at 2100 Given11/17/2025 9:42 AM CST81 ypXqcuz0011/16/2025 8:30 PM CST81 mg benzocaine-menthoL 15-3.6 mg per lozenge 1 lozenge (CepacoL) 1 lozenge, oral, As needed, sore throat, Starting on Wed11/16/25 at 1730 calcium carbonate chewable tablet 400 mg of calcium (Tums) 400 mg of calcium, oral, Every 2 hour PRN, indigestion, Starting on Wed11/16/25 at 1730, Doses listed are in mg of elemental calcium. Take with food. 500 mg calcium carbonate contains 200 mg of elemental calcium. celecoxib capsule 200 mg (CeleBREX) 200 mg, oral, Daily, First dose on Wed11/17/25 at 0900, Start after ketorolac complete. Hold for GFR <50ml/min/BSA, renal transplant, solitary kidney etc Given11/17/2025 9:42 AM KJV240 mg dextroamphetamine-amphetamine tablet 10 mg (Adderall) 10 mg, oral, 2 times daily with morning and midday meals, First dose on Wed11/17/25 at 0800 Given11/17/2025 11:22 AM CST10 nwRmgiw4511/17/2025 7:45 AM CST10 mg fentaNYL injection 25 mcg (Sublimaze) 25 mcg, intravenous, Every 2 min PRN, For pain 4 or greater (maximum 100 mcg). If max dose of Fentanyl is reached and if pain is greater than 4, discontinue Fentanyl: give Hydromorphone, Starting on Wed11/16/25 at 0833, PACU (only) Given11/16/2025 8:52 AM CST25 clbMrpnj33/26/2025 8:50 AM CST25 mcgGiven 11/16/2025 8:45 AM CST25 mcg haloperidol lactate injection 1 mg (HaldoL) 1 mg, intravenous, Every 6 hours PRN, nausea, vomiting, Starting on Wed11/16/25 at 1730, For 48 hours, Total of 3 doses in 24 hour period. RASS must be -2 or higher to administer. Reassess for nausea or vomiting after at least 10 minutes. If nausea or vomiting persists administer next ordered antiemetic medications (order for antiemetic medication administration ondansetron then haloperidol thenprochlorperazine) ketorolac injection 15 mg (ToradoL) 15 mg, intravenous, Every 6 hours, First dose on Wed11/16/25 at 1800, For 2 doses, If patient received PACU dose - discontinue after 2 doses. Hold for GFR <50ml/min/BSA, renal transplant, solitary kidney etc Adult IV push rate: Over 15 seconds. Peds IV push rate: Over 1 minute. Doses > 15 mgIV/IM are discouraged due to lack of additional analgesic benefit. Given11/16/2025 11:35 PM CST15 iuQdqxv2911/16/2025 7:10 PM CST15 mg Lactated Ringer's 20 mL/hr, intravenous, Continuous, Starting on Wed11/16/25 at 0900, PACU & Post-Op Continued from OR11/16/2025 8:43 AM CST20 mL/hr20 mL/hr midazolam (PF) injection 1 mg (Versed) 1 mg, intravenous, Once, On Wed11/16/25 at 0745, For 1 dose, Pre-Op, Please administer after surgical team sees her Given11/16/2025 7:28 AM CST1 mg naloxone injection 0.2 mg (Narcan) 0.2 mg, intravenous, As needed, respiratory depression, Starting on Wed11/16/25 at 1730, For RASS Score -4 or less, respiratory rate of less than 8 breaths/min. Notify provider/service and rapid response team (if available at institution). ondansetron (PF) injection 4 mg (Zofran) 4 mg, intravenous, Every 6 hours PRN, nausea, vomiting, Starting on Wed11/16/25 at 0924, For 48 hours, PACU & Post-Op, Reassess for nausea or vomiting after at least 10 minutes. If nausea or vomiting persists administer next ordered antiemetic medications (order for antiemetic medication administration ondansetron then haloperidol then prochlorperazine). Given11/16/2025 3:53 PM CST4 mg ondansetron (PF) injection 4 mg (Zofran) 4 mg, intravenous, Every 6 hours PRN, nausea, vomiting, Starting on Wed11/16/25 at 1730, For 48 hours, Reassess for nausea or vomiting after at least 10 minutes. If nausea or vomiting persists administer next ordered antiemetic medications (order for antiemetic medication administration ondansetron then haloperidol then prochlorperazine). oxyCODONE IR tablet 10 mg (Roxicodone) 10 mg, oral, Every 4 hours PRN, severe pain or score 7-10 of 10, Starting on Wed11/16/25 at 0924, PACU & Post-Op, Second line therapy. If patient is greater than 7 after 2 hours, call service for new order. May administer lower pain scale value dose of prescribed medication based on patient request Given11/16/2025 1:53 PM CST10 mg oxyCODONE IR tablet 10 mg (Roxicodone) 10 mg, oral, Once as needed, For pain 4 or greater, Starting on Wed11/16/25 at 0833, For 1 dose, PACU (only) Given11/16/2025 8:43 AM CST10 mg oxyCODONE IR tablet 10 mg (Roxicodone) 10 mg, oral, Every 4 hours PRN, severe pain or score 7-10 of 10, Starting on Wed11/16/25 at 1730, Second line therapy. If patient is greater than 7 after 2 hours, call service for new order. May administer lower pain scale value dose of prescribed medication based on patient request oxyCODONE IR tablet 5 mg (Roxicodone) 5 mg, oral, Every 4 hours PRN, moderate pain or score 4-6 of 10, Starting on Wed11/16/25 at 1730, Second line therapy Given11/17/2025 9:42 AM CST5 mkDqycv6811/17/2025 4:01 AM CST5 xzFkwik2811/16/2025 8:31 PM CST5 mg prochlorperazine injection 5 mg (Compazine) 5 mg, intravenous, Every 6 hours PRN, nausea, vomiting, Starting on Wed11/16/25 at 1730, For 48 hours, RASS must be -2 or higher to administer. Reassess for nausea/vomiting after at least 10 minutes. If nausea or vomiting persists administer next ordered antiemetic medications (order for antiemetic medication administration ondansetron then haloperidol then prochlorperazine) propranoloL 24 hr capsule 120 mg (InderaL LA) 120 mg, oral, Daily, First dose on Wed11/17/25 at 0900, Swallow whole. Do NOT crush, chew or open capsule. Given11/17/2025 9:42 AM UNR195 mg scopolamine base 1 mg over 3 days 1 patch (Transderm-Scop) 1 patch, transdermal, Administer over 72 Hours, Every 72 hours, First dose on Wed11/16/25 at 0745,For 1 dose, Pre-Op, Contains 1.5 mg to deliver 1 mg/72 hours. Medication Qxgqzpg6611/16/2025 7:23 AM CST1 patchBehind Right Ear sennosides-docusate sodium 8.6-50 mg per tablet 1 tablet (Senokot-S) 1 tablet, oral, 2 times daily, First dose on Wed11/16/25 at 2100, Do not give if patient has diarrhea. Given11/17/2025 9:42 AM CST1 vwrpdiRqtxh37/26/2025 8:31 PM CST1 tablet traMADoL tablet 100 mg (Ultram) 100 mg, oral, Every 6 hours PRN, severe pain or score 7-10 of 10, Starting on Wed11/16/25 at 0924,PACU & Post-Op, First line therapy: May administer lower pain scale value dose of prescribed medication based on patient request. Not to exceed 400 mg in 24 hours. , Restriction Criteria (Pharmacy will review and approve if criteria met): Use in adults 18 years and older Given11/16/2025 11:13 AM DOA119 mg traMADoL tablet 100 mg (Ultram) 100 mg, oral, Every 6 hours PRN, severe pain or score 7-10 of 10, Starting on Wed11/16/25 at 1730,First line therapy: May administer lower pain scale value dose of prescribed medication based on patient request. Not to exceed 400 mg in 24 hours. , Restriction Criteria (Pharmacy will review and approve if criteria met): Use in adults 18 years and older Given11/17/2025 11:20 AM BNS989 sbBemco6411/17/2025 12:15 AM WCG137 mgGiven 11/16/2025 6:54 PM CDL767 mg traMADoL tablet 50 mg (Ultram) 50 mg, oral, Every 6 hours PRN, moderate pain or score 4-6 of 10, Starting on Wed11/16/25 at 1730,First line therapy, Restriction Criteria (Pharmacy will review and approve if criteria met): Use inadults 18 years and older documented in this encounter Active and Recently Administered Medications Times are shown in E[employer]ER.Medication Order acetaminophen tablet 1,000 mg (TylenoL) (COMPLETED) 1,000 mg, oral, Once, On Wed11/16/25 at 0745, For 1 dose, Pre-Op * 0723 (Given - Provider: Fiordaliza Zamora RMervin) acetaminophen tablet 1,000 mg (TylenoL) 1,000 mg, oral, Every 6 hours, First dose on Wed11/16/25 at 1800 * 1910 (Given - Provider: Emiil Venegas RMervin) * 2335 (Given - Provider: Dilia Cee) * 0505 (Given - Provider: Dilia Cee) * 1118 (Given - Provider: Priya Edwards R.N.) aprepitant injection 32 mg (Aponvie) (COMPLETED) 32 mg, intravenous, Once, On Wed11/16/25 at 0745, For 1 dose, Pre-Op, Restriction Criteria (Pharmacy will review and approve if criteria met): Meet restriction criteria * 0723 (Given - Provider: Fiordaliza Zamora R.N.) aspirin chewable tablet 81 mg 81 mg, oral, 2 times daily, First dose on Wed11/16/25 at 2100 * 2030 (Given - Provider: Dilia Cee) * 0942 (Given - Provider: Priya Edwards R.N.) ceFAZolin injection 2,000 mg (Ancef) (COMPLETED) 2,000 mg (rounded from 1,980 mg = 25 mg/kg ?? 79.2 kg), intravenous, Once, On Wed11/16/25 at 0730,For 1 dose, Intra-Op, Administer within 1 hour prior to surgical incision For immediate IV push administration, reconstitute vial per IVAG or package insert instructions. See IVAG for administration guidelines., Drug Monitoring Program: Pharmacist to adjust medication dosing based on indication anddrug clearance factors., Indications: Prophylaxis, surgical * 0755 (Given - Provider: Karla Monroy R.N.) celecoxib capsule 200 mg (CeleBREX) 200 mg, oral, Daily, First dose on Wed11/17/25 at 0900, Start after ketorolac complete. Hold for GFR <50ml/min/BSA, renal transplant, solitary kidney etc * 0942 (Given - Provider: Priya Edwards R.N.) dextroamphetamine-amphetamine tablet 10 mg (Adderall) 10 mg, oral, 2 times daily with morning and midday meals, First dose on Wed11/17/25 at 0800 * 0745 (Given - Provider: Priya Edwards R.N.) * 1122 (Given - Provider: Priya Edwards R.N.) ketorolac injection 15 mg (ToradoL) (COMPLETED) 15 mg, intravenous, Every 6 hours, First dose on Wed11/16/25 at 1800, For 2 doses, If patient received PACU dose - discontinue after 2 doses. Hold for GFR <50ml/min/BSA, renal transplant, solitary kidney etc Adult IV push rate: Over 15 seconds. Peds IV push rate: Over 1 minute. Doses > 15 mgIV/IM are discouraged due to lack of additional analgesic benefit. * 1910 (Given - Provider: Emili Venegas R.N.) * 1751 (Given - Provider: Dilia Cee) midazolam (PF) injection 1 mg (Versed) (COMPLETED) 1 mg, intravenous, Once, On Wed11/16/25 at 0745, For 1 dose, Pre-Op, Please administer after surgical team sees her * 0728 (Given - Provider: Fiordaliza Zamora R.N.) propranoloL 24 hr capsule 120 mg (InderaL LA) 120 mg, oral, Daily, First dose on Wed11/17/25 at 0900, Swallow whole. Do NOT crush, chew or open capsule. * 0942 (Given - Provider: Priya Edwards R.N.) scopolamine base 1 mg over 3 days 1 patch (Transderm-Scop) (CANCELED) 1 patch, transdermal, Administer over 72 Hours, Every 72 hours, First dose on Wed11/16/25 at 0745,For 1 dose, Pre-Op, Contains 1.5 mg to deliver 1 mg/72 hours. * 0723 (Medication Applied - Provider: Fiordaliza Zamora R.N.) * 1203 (Due: Medication Removed - Provider: Discharge Provider, Automatic - Comment: Time automatically adjusted from order being discontinued) sennosides-docusate sodium 8.6-50 mg per tablet 1 tablet (Senokot-S) 1 tablet, oral, 2 times daily, First dose on Wed11/16/25 at 2100, Do not give if patient has diarrhea. * 2030 (Given - Provider: Dilia Cee) * 0942 (Given - Provider: Priya Edwards R.N.) Medication Order// Lactated Ringer's 75 mL/hr, intravenous, Continuous, Starting on Wed11/16/25 at 0945, PACU & Post-Op, until tolerating oral diet * 0945 (Due) Lactated Ringer's (CANCELED) 20 mL/hr, intravenous, Continuous, Starting on Wed11/16/25 at 0900, PACU & Post-Op * 0843 (Continued from OR - Provider: Reagan Posada R.N.) * 2046 (Stopped - Provider: Dilia Cee - Comment: [Order ends at this time. Document the followingaction when infusion is complete: Stopped]) Medication Order// benzocaine-menthoL 15-3.6 mg per lozenge 1 lozenge (CepacoL) 1 lozenge, oral, As needed, sore throat, Starting on Wed11/16/25 at 1730 calcium carbonate chewable tablet 400 mg of calcium (Tums) 400 mg of calcium, oral, Every 2 hour PRN, indigestion, Starting on Wed11/16/25 at 1730, Doses listed are in mg of elemental calcium. Take with food. 500 mg calcium carbonate contains 200 mg of elemental calcium. fentaNYL injection 25 mcg (Sublimaze) 25 mcg, intravenous, Every 30 min PRN, severe pain or score 7-10 of 10, Starting on Wed11/16/25 [id number], For 3 doses, PACU & Post-Op, May administer if pain is greater than 6 after scheduled andPRN regimen exhausted. If pain remains greater than 6, notify primary service. fentaNYL injection 25 mcg (Sublimaze) (CANCELED) 25 mcg, intravenous, Every 2 min PRN, For pain 4 or greater (maximum 100 mcg). If max dose of Fentanyl is reached and if pain is greater than 4, discontinue Fentanyl: give Hydromorphone, Starting on Wed11/16/25 at 0833, PACU (only) * 0843 (Given - Provider: Reagan Posada R.N.) * 0845 (Given - Provider: Reagan Posada R.N.) * 0850 (Given - Provider: Reagan Posada R.N.) * 0852 (Given - Provider: Reagan Posada R.N.) haloperidol lactate injection 1 mg (HaldoL) 1 mg, intravenous, Every 6 hours PRN, nausea, vomiting, Starting on Wed11/16/25 at 1730, For 48 hours, Total of 3 doses in 24 hour period. RASS must be -2 or higher to administer. Reassess for nausea or vomiting after at least 10 minutes. If nausea or vomiting persists administer next ordered antiemetic medications (order for antiemetic medication administration ondansetron then haloperidol thenprochlorperazine) naloxone injection 0.2 mg (Narcan) 0.2 mg, intravenous, As needed, respiratory depression, Starting on Wed11/16/25 at 1730, For RASS Score -4 or less, respiratory rate of less than 8 breaths/min. Notify provider/service and rapid response team (if available at institution). ondansetron (PF) injection 4 mg (Zofran) (CANCELED) 4 mg, intravenous, Every 6 hours PRN, nausea, vomiting, Starting on Wed11/16/25 at 0924, For 48 hours, PACU & Post-Op, Reassess for nausea or vomiting after at least 10 minutes. If nausea or vomiting persists administer next ordered antiemetic medications (order for antiemetic medication administration ondansetron then haloperidol then prochlorperazine). * 1553 (Given - Provider: Laure Mart R.N.) ondansetron (PF) injection 4 mg (Zofran) 4 mg, intravenous, Every 6 hours PRN, nausea, vomiting, Starting on Wed11/16/25 at 1730, For 48 hours, Reassess for nausea or vomiting after at least 10 minutes. If nausea or vomiting persists administer next ordered antiemetic medications (order for antiemetic medication administration ondansetron then haloperidol then prochlorperazine). oxyCODONE IR tablet 10 mg (Roxicodone) (CANCELED)(Linked Group 1) 10 mg, oral, Every 4 hours PRN, severe pain or score 7-10 of 10, Starting on Wed11/16/25 at 0924, PACU & Post-Op, Second line therapy. If patient is greater than 7 after 2 hours, call service for new order. May administer lower pain scale value dose of prescribed medication based on patient request * 1353 (Given - Provider: Laure Mart R.N.) oxyCODONE IR tablet 10 mg (Roxicodone) (COMPLETED) 10 mg, oral, Once as needed, For pain 4 or greater, Starting on Wed11/16/25 at 0833, For 1 dose, PACU (only) * 0843 (Given - Provider: Reagan Posada R.N.) oxyCODONE IR tablet 10 mg (Roxicodone)(Linked Group 2) 10 mg, oral, Every 4 hours PRN, severe pain or score 7-10 of 10, Starting on Wed11/16/25 at 1730, Second line therapy. If patient is greater than 7 after 2 hours, call service for new order. May administer lower pain scale value dose of prescribed medication based on patient request * 2031 (See Alternative - Provider: Dilia Cee) * 0401 (See Alternative - Provider: Dilia Cee) * 0942 (See Alternative - Provider: Priya Edwards R.N.) oxyCODONE IR tablet 5 mg (Roxicodone)(Linked Group 2) 5 mg, oral, Every 4 hours PRN, moderate pain or score 4-6 of 10, Starting on Wed11/16/25 at 1730, Second line therapy * 203 (Given - Provider: Dilia Cee) * 0401 (Given - Provider: Dilia Cee) * 0942 (Given - Provider: Priya Edwards R.N.) prochlorperazine injection 5 mg (Compazine) 5 mg, intravenous, Every 6 hours PRN, nausea, vomiting, Starting on Wed11/16/25 at 1730, For 48 hours, RASS must be -2 or higher to administer. Reassess for nausea/vomiting after at least 10 minutes. If nausea or vomiting persists administer next ordered antiemetic medications (order for antiemetic medication administration ondansetron then haloperidol then prochlorperazine) ROPivacaine (PF) 2 mg/mL (0.2 %) injection (Naropin) (CANCELED) As needed, Starting on Wed11/16/25 at 0807, Intra-Op * 0807 (Given - Provider: gNa Ludwig M.D.) traMADoL tablet 100 mg (Ultram) (CANCELED)(Linked Group 3) 100 mg, oral, Every 6 hours PRN, severe pain or score 7-10 of 10, Starting on Wed11/16/25 at 0924,PACU & Post-Op, First line therapy: May administer lower pain scale value dose of prescribed medication based on patient request. Not to exceed 400 mg in 24 hours. , Restriction Criteria (Pharmacy will review and approve if criteria met): Use in adults 18 years and older * 1113 (Given - Provider: Erika Castorena R.N., C.M.S.R.N.) traMADoL tablet 100 mg (Ultram)(Linked Group 4) 100 mg, oral, Every 6 hours PRN, severe pain or score 7-10 of 10, Starting on Wed11/16/25 at 1730,First line therapy: May administer lower pain scale value dose of prescribed medication based on patient request. Not to exceed 400 mg in 24 hours. , Restriction Criteria (Pharmacy will review and approve if criteria met): Use in adults 18 years and older * 1854 (Given - Provider: Priya Edwards R.N.) * 0015 (Given - Provider: Dilia Cee) * 0020 (See Alternative - Provider: Dilia Cee) * 1120 (Given - Provider: Priya Edwards R.N.) traMADoL tablet 50 mg (Ultram)(Linked Group 4) 50 mg, oral, Every 6 hours PRN, moderate pain or score 4-6 of 10, Starting on Wed11/16/25 at 1730,First line therapy, Restriction Criteria (Pharmacy will review and approve if criteria met): Use inadults 18 years and older * 1854 (See Alternative - Provider: Priya Edwards R.N.) * 0015 (See Alternative - Provider: Dilia Cee) * 0020 (Not Given - Provider: Dilia Cee - Reason: Other - Comment: Gave the 100mg tramadol instead per pain scale. 50mg returned in pyxis.) * 1120 (See Alternative - Provider: Priya Edwards R.N.) Order Group 1: oxyCODONE IR tablet 5 mg (Roxicodone) (CANCELED) 5 mg, oral, Every 4 hours PRN, moderate pain or score 4-6 of 10, Starting on Wed11/16/25 at 0924, PACU & Post-Op, Second line therapy Or oxyCODONE IR tablet 10 mg (Roxicodone) (CANCELED)Jump to med 10 mg, oral, Every 4 hours PRN, severe pain or score 7-10 of 10, Starting on Wed11/16/25 at 0924, PACU & Post-Op, Second line therapy. If patient is greater than 7 after 2 hours, call service for new order. May administer lower pain scale value dose of prescribed medication based on patient request Group 2: oxyCODONE IR tablet 5 mg (Roxicodone)Jump to med 5 mg, oral, Every 4 hours PRN, moderate pain or score 4-6 of 10, Starting on Wed11/16/25 at 1730, Second line therapy Or oxyCODONE IR tablet 10 mg (Roxicodone)Jump to med 10 mg, oral, Every 4 hours PRN, severe pain or score 7-10 of 10, Starting on Wed11/16/25 at 1730, Second line therapy. If patient is greater than 7 after 2 hours, call service for new order. May administer lower pain scale value dose of prescribed medication based on patient request Group 3: traMADoL tablet 50 mg (Ultram) (CANCELED) 50 mg, oral, Every 6 hours PRN, moderate pain or score 4-6 of 10, Starting on Wed11/16/25 at 0924,PACU & Post-Op, First line therapy, Restriction Criteria (Pharmacy will review and approve if criteria met): Use in adults 18 years and older Or traMADoL tablet 100 mg (Ultram) (CANCELED)Jump to med 100 mg, oral, Every 6 hours PRN, severe pain or score 7-10 of 10, Starting on Wed11/16/25 at 0924,PACU & Post-Op, First line therapy: May administer lower pain scale value dose of prescribed medication based on patient request. Not to exceed 400 mg in 24 hours. , Restriction Criteria (Pharmacy will review and approve if criteria met): Use in adults 18 years and older Group 4: traMADoL tablet 50 mg (Ultram)Jump to med 50 mg, oral, Every 6 hours PRN, moderate pain or score 4-6 of 10, Starting on Wed11/16/25 at 1730,First line therapy, Restriction Criteria (Pharmacy will review and approve if criteria met): Use inadults 18 years and older Or traMADoL tablet 100 mg (Ultram)Jump to med 100 mg, oral, Every 6 hours PRN, severe pain or score 7-10 of 10, Starting on Wed11/16/25 at 1730,First line therapy: May administer lower pain scale value dose of prescribed medication based on patient request. Not to exceed 400 mg in 24 hours. , Restriction Criteria (Pharmacy will review and approve if criteria met): Use in adults 18 years and older documented in this encounter Additional Health Concerns AssessmentNoted TimePHQ-9 Depression Total Score: 5:14 PM CDT documented as of this encounter Care Teams Team MemberRelationshipSpecialtyStart DateEnd Date Elsewhere, Pcp PCP - GeneralInternal Medicine03/21/25documented as of this encounter
--- OUTSIDE RECORDS SUMMARY | 2025-11-16 07:25 | XMS_ITS | Encounter Summary ---
[facility] Address [address] [place] [address] Care Team Providers Care Special Education Professor Name Role Phone Elsewhere, Pcp Primary Care Provider Unavailabl e Reason for Visit * Auth/Cert (Routine)SpecialtyDiagnoses / ProceduresReferred By ContactReferred To Contact Diagnoses Aftercare Removal Orthopedic Hardware Postop Non-Injury Aftercare Removal Orthopedic Hardware Postop Non-Injury [Z47.2] Procedures MT RMVL IMPLANT DEEP REMOVAL HARDWARE PELVIS Lenin Ugalde M.D. [address] [place] [address] Phone: tel: fax: Referral IDStatusReasonStart DateExpiration DateVisits RequestedVisits [id number] Encounter Details DateTypeDepartmentCare Team (Latest Contact Info)Gytmucronrq31/26/2025 7:25 AM FITTINGS FINISHER - 11/16/2025 9:45 AM CSTSurgery RST [facility] OR [address] [place] [id number] Johnnie Hong M.D. [address] [place] [phone] REMOVAL HARDWARE PELVIS. Social History Tobacco UseTypesPacks/DayYears UsedDateSmoking Tobacco: NeverPassive [...] RecordedIn the past 12 months has the [employer], gas, oil, or water [employer] threatened to shut off services in your home?No11/16/2025Postpartum DepressionAnswerDate RecordedPHQ-9 Total Score (max 27)Housing StabilityAnswerDate RecordedWhat is your living situation today?I have a steady place to live11/16/2025EducationAnswerDate RecordedWhat is the highest level of school you have completed or the highest degree you have received?Associate degree: occupational, technical, or vocational program 2CommentsNoSex and Gender InformationValueDate RecordedSex Assigned at YnjswHhasor19/06/2022 5:37 PM CSTLegal CxnAzzinz55/04/2018 6:08 PM CDTGender OrrbnntnWrfeof37/06/2022 5:37 PM CSTSexual OrientationStraight 01/25/2022 5:37 PM CSTdocumented as of this encounter Last Filed Vital Signs Vital SignReadingTime TakenCommentsBlood Qtnrxwmq611/9411/16/2025 9:20 AM FITTINGS FINISHER Rvzsu796411/16/2025 9:00 AM FVGPlxyksyrnhs55.8 ??C (98.2 ??F)11/16/2025 9:20 AM CSTRespiratory Uzep123501/17/2025 9:20 AM CSTOxygen Ngtrprzfdb58%11/16/2025 9:20 AM CSTInhaled Oxygen Concentration--Kksmen47.3 kg (196 lb 13.9 oz)11/16/2025 6:52 AM ONNUptese853 cm (5' 2.6)11/16/2025 6:52 AM CSTBody Mass Index35.32 11/16/2025 6:52 AM CSTdocumented in this encounter Functional Status * Patient VerificationQuestionAnswerDate of AssessmentAuthorBlood transfusion or in past 5 months?No11/16/2025 7:03 AM Fiordaliza Scott RRooseveltN. Beta David AdministeredNot wgcbjsiabz92/26/2025 7:03 AM Fiordaliza Scott RRooseveltN. * Obstructive Sleep Apnea ScreenQuestionAnswerDate of AssessmentAuthorPatient has a diagnosis of obstructive sleep apnea? 7:03 AM Fiordaliza Scott RRooseveltN. * Vital SignsQuestionAnswerDate of AssessmentAuthorRichmond Agitation Sedation Scale (RASS) 11:26 AM Priya Morales R.N. * Ananda ScaleQuestionAnswerDate of AssessmentAuthorSensory Perceptions4 11/17/2025 7:57 AM Priya Morales R.N.Zxpvpcwb056/27/2025 7:57 AM FITTINGS FINISHER Priya Edwards R.N.Iiybdwlz469/27/2025 7:57 AM Priya Morales R.N. Sxrlfjqk069/27/2025 7:57 AM Priya Morales R.N.Mkdyyjqzf223/27/2025 7:57 AM Priya Morales R.N.Friction and Bahft87101/18/2025 7:57 AM Priya Morales R.N.Ananda Scale Ejnfv020711/17/2025 7:57 AM Priya Morales R.N. * Psychiatric [...] Gaitan * Assistive DevicesQuestionAnswerDate of AssessmentAuthorAssistive Devices Vgeycbznoy23/26/2025 7:03 AM Fiordaliza Scott RRooseveltNRoosevelt * NPOQuestionAnswerDate of AssessmentAuthorTime of last hysqvl6793521/26/2025 6:55 AM Fiordaliza Scott RRooseveltN.Date of last dvqybt1167961/26/2025 6:55 AM Fiordaliza Scott RRooseveltN.Date of last tscxm3602692/26/2025 6:55 AM Fiordaliza Ashraf RRooseveltNRooseveltTime of last dmrpb9931725/26/2025 6:55 AM Fiordaliza Scott RRooseveltNRoosevelt * Height and WeightQuestionAnswerDate of AssessmentAuthorBMI (Calculated)35.3 11/16/2025 6:52 AM Fiordaliza Scott RDev. * Tobacco useQuestionAnswerDate of AssessmentAuthorHave you smoked any form of tobacco in the last 30 days?No11/16/2025 7:03 AM Fiordaliza Scott R.N. * STOP-BANG QuestionnaireQuestionAnswerDate of AssessmentAuthorDo you snore loudly (loud enough to be heard through closed doors or your bed-partner elbows you for snoring at night)? 7:03 AM Fiordaliza Scott R.N.Do you often feel tired, fatigued, or sleepy during the daytime (such as falling asleep during driving or talking to someone)? 7:03 AM Fiordaliza Ashraf R.N.Has anyone observed you stop breathing or choking/gasping during your sleep? 7:03 AM Fiordaliza Scott RRooseveltN.Do you have or are being treated for high blood pressure? 7:03 AM Fiordaliza Scott RRooseveltN.Body Mass Index more than 35 kg/m2? 7:03 AM Fiordaliza Scott R.N.Age older than 50? 7:03 AM Fiordaliza Ashraf R.N.Is your shirt collar 16 inches/40cm or larger?0 11/16/2025 7:03 AM Fiordaliza Scott RRooseveltN.Gender = Male? 7:03 AM Fiordaliza Scott R.NRooseveltSTOP-BANG Total Gioym24201/17/2025 7:03 AM Fiordaliza Ashraf R.N. * Modified Angeles ScoreQuestionAnswerDate of AssessmentAuthorMotor Activity2 11/16/2025 11:32 AM Laure Higuera R.N.Drcxehrpjwc238/26/2025 11:32 AM Laure Higuera R.N.Rtbotdvzqmzcs787/26/2025 11:32 AM Laure Higuera R.N.Oxygen Ghzwhhpdcq340/26/2025 11:32 AM Laure Higuera R.N.Modified Angeles Brqur1629/26/2025 11:32 AM Laure Higuera R.N.Systolic BP2 11/16/2025 11:32 AM Laure Higuera R.N. * Abuse IndicatorsQuestionAnswerDate of AssessmentAuthorIs there a history, concern, or exposure to physical, emotional, sexual, financial abuse, neglect or domestic violence?No11/16/2025 7:03 AM Fiordaliza Scott R.N. Information KpyszrQscfmfc09/26/2025 7:03 AM Fiordaliza Scott R.N. * BMI: Desirable <25, High Risk >30AnswerDate of MkyfwnfluiGaboewRrso73/26/2025 6:52 AM Fiordaliza Scott R.N. * Fall RiskQuestionAnswerDate of AssessmentAuthorHave you fallen within the last year or do you fear you might fall?Yes11/16/2025 7:05 AM Fiordaliza Scott R.N. * Bedside Mobility Assessment Tool (BMAT)QuestionAnswerDate of AssessmentAuthor Mobility Level (calculated)Mobility Level 7:57 AM Priya Morales R.N.Mobility Assessment Level 1: Sit and FjgvbFwqd69/27/2025 7:57 AM Priya Morales R.N.Mobility Assessment Level 2: Stretch and PointPass 11/17/2025 7:57 AM Priya Morales R.N.Mobility Assessment Level 3: Stand Pass11/17/2025 7:57 AM Priya Morales R.N.Mobility Assessment Level 4: Modified RstsdwmerzycGabf55/27/2025 7:57 AM Priya Morales R.N.Mobility Level 3 DevicesL3 - Gait belt;L3 - Pqwgmt2511/17/2025 7:57 AM Priya Morales R.N. * Additional Fall Risk IndicationQuestionAnswerDate of AssessmentAuthor Clinically assessed at higher fall risk?No11/17/2025 7:57 AM Priya Morales R.N. * Pain AssessmentQuestionAnswerDate of AssessmentAuthorResponse to Interventions Reports no side ljbiizq0011/17/2025 5:14 AM Dilia Gaitan MPain LocationHip 11/16/2025 11:08 AM Erika Maldonado R.N., C.M.S.R.N.Pain Orientation Left11/16/2025 11:08 AM Erika Maldonado R.N., C.M.S.R.N.Pain InterventionsMedication (See MAR)11/17/2025 11:18 AM Priya Morales R.N. Patient's Stated Pain Fqfl66001/17/2025 7:35 PM Dilia Gaitan Type Surgical pain11/16/2025 11:08 AM Erika Maldonado R.N., C.M.S.R.N. * Pain ScoreAnswerDate of GkeayhuiduAhzqiw679/27/2025 11:18 AM Priya Morales R.N. * Sedation ScalesQuestionAnswerDate of AssessmentAuthorSedation Scale Used Hernandez Agitation Sedation Scale11/17/2025 7:57 AM Priya Morales R.N. * Roche Francesco Fall Risk Assessment ScaleQuestionAnswerDate of AssessmentAuthor Last Known Vejd01001/18/2025 7:57 AM Priya Morales R.N.Mobility0 11/17/2025 7:57 AM Priya Morales R.N.Zplmcdxruba029/27/2025 7:57 AM Priya Jack R.N.Mental Status/LOC/Zvthlwqzf343/27/2025 7:57 AM Priya Jack R.N.Toileting Wdhmr452 7:57 AM Priya Morales R.N.Volume/Electrolyte Etcduk378 7:57 AM Priya Morales R.N. Communication/Mvtqnmw737 7:57 AM Priya Morales R.N.Behavior0 11/17/2025 7:57 AM Priya Morales R.N.Roche Francesco Fall Risk Total6 11/17/2025 7:57 AM Priya Morales R.N. * Fall Risk Scale and AssessmentsQuestionAnswerDate of AssessmentAuthorFall Risk ScaleJewish Maternity Hospitalter Francesco11/17/2025 7:57 AM Priya Morales R.N. * Patient PreparationQuestionAnswerDate of AssessmentAuthorPre-Procedure Prep Antimicrobial shower/wipes complete in AM;Antimicrobial shower/wipes complete in PM11/16/2025 7:03 AM Fiordaliza Scott R.N. * Early Screen for Discharge PlanningQuestionAnswerDate of AssessmentAuthorSelf- rated Walking Oxrwvgjbhv276/26/2025 7:05 PM Fiordaliza Peter R.N.Age in Iwgjt57601/17/2025 7:05 PM Fiordaliza Peter R.N.Prior Living Status3 11/16/2025 7:05 PM Fiordaliza Peter R.N.Costa Disability Score0 11/16/2025 7:05 PM Fiordaliza Peter R.N.ESDP Jmpyh45801/17/2025 7:05 PM Fiordaliza Peter R.N. * Exparel?? / Zynrelef??QuestionAnswerDate of AssessmentAuthorHave you had a procedure outside of [facility] in the past 4 days? (Select Yes if the patient iswearing an Exparel?? or a Zynrelef?? armband.)No11/16/2025 7:03 AM Fiordaliza Scott R.N. * Fall Prevention InterventionsQuestionAnswerDate of AssessmentAuthorUniversal Fall Precautions in OmktlFbb29/27/2025 7:57 AM Priya Morales R.N. Medication InterventionsDangle at gziothj5011/17/2025 7:57 AM Priya Morales R.N.Communication/Sensory InterventionsAmbient light11/17/2025 7:57 AM Priya Morales R.N.Last Known Fall LkmnqgizjnhnzSDW14/27/2025 7:57 AM Priya Morales R.N. * Delirium Prediction Tool ScoreQuestionAnswerDate of AssessmentClarks Summit State Hospital Surgical Score (Ignition Mechanic Use Only)0.02101/18/2025 6:00 AM CSTSystem, Provider Not In documented as of this encounter Mental Status * [place] Coma ScaleQuestionAnswerEntry DateAuthorEye Ziagymy507/27/2025 7:57 AM Priya Morales R.N.Best Motor Vsfrwcwg875/27/2025 7:57 AM Priya Morales R.N.Best Verbal Zvoshmve791/27/2025 7:57 AM Priya Morales R.N. Brayan Coma Scale Phwyc1471/27/2025 7:57 AM Priya Morales R.N. documented in this encounter Discharge Summaries * Nga Ludwig M.D. - 11/17/2025 7:29 AM CST DISCHARGE SUMMARY BRIEF OVERVIEW Hospital: [facility] Discharge Provider: Johnnie Hong M.D. Primary Team: [facility] Orthopedic Surgery - [facility] Primary Care Providers: Elsewhere, Pcp (General) No [...] PELVIS. Johnnie Hong M.D.Ray, Gabrielle S, M.D. [facility] OR DISCHARGE DISPOSITION Home or Self [...] M.D.Nga Ludwig M.D. [facility] Cyndee Ratliff Veronica was taken to [...] For any further details please see the [facility] orthopedic surgery progress note and any other co-managing teams dated 11/17/2025. CONSULTS ORDERED DURING THIS ADMISSION None CONDITION AT DISCHARGE stable Discharge instructions were provided to the patient and caregiver(s). Total time spent in discharge services today: 20 minutes. INGS FINISHER INGS FINISHER documented in this encounter Discharge Instructions * Attachments The following attachments cannot be sent through Care Everywhere. * Celecoxib (By mouth) (Angolan) * Oxycodone, Rapid Release (By mouth) (Angolan) * Senna (By mouth) (Angolan) * Tramadol (By mouth) (Angolan) documented in this encounter Medications at Time [...] mouth daily for 15 days. 100 tablet traMADoL (Ultram) 50 mg tablet Indications:Acute Pain ExceptionTake 1 tablet (50 mg total) by mouth every 6 (six) hours as needed for moderate pain or score 4-6 of 10. 10 tablet 11/16/2025 10:36 AM CST11/16/2025 ubrogepant (Ubrelvy) 100 mg tablet tablet Indications:Migraine HeadacheTake 1 tablet (100 mg total) by mouth as needed for migraine. May repeat dose once after at least 2hours if migraine unresolved. Do not exceed 200 mg in 24 hours. Max 8 days per month 10 tablet 1104/30/2025documented as of this encounter Progress Notes * [...] at this time. Trista Holman M.S., O.T. INGS FINISHER * Nga Ludwig M.D. - 11/17/2025 7:25 [...] just voided on her own this AM wlaqp655jl. She is pleased she was able to [...] today Nga Ludwig M.D. Please contact the [email or web address] service with any questions or concerns regarding this patient. If outside of 06:00 - 18:00 on weekdays or any time on the weekend, please contact the Orthopedic Surgery house resident automobile brakes bonder at [phone]. INGS FINISHER * Francisca Morgan Pharm.D., R.Ph., BCPS - 11/16/2025 8:29 PM CST [...] 24 hours. Max 8 days per month INGS FINISHER * Ramy Perez P.T., D.P.T. - 11/16/2025 [...] reconsult as needed. Ramy Perez, PT, DPT INGS FINISHER documented in this encounter OR Notes * Op Note - Johnnie Hong M.D. - 11/16/2025 8:46 AM CST PROCEDURE: Left pelvic hardware removal. SURGEON: Johnnie Hong M.D. EXTRUSION ENGINEER: Nga Ludwig M.D. ANESTHESIA: Attended local. PRE-OPERATIVE DIAGNOSIS Previous dysplastic hip. Previous pelvic osteotomy. POST-OPERATIVE DIAGNOSIS Previous dysplastic hip. Previous pelvic osteotomy. A phlebotomist medical lab assistant actively participated and was necessary for one [...] Johnnie Hong M.D. CT CT Job ID: [id number] INGS FINISHER documented in this encounter Miscellaneous Notes * Hospital Course - Nga Ludwig M.D. - 11/17/2025 7:29 AM CST Surgery Information This Encounter Past Procedures (11/17/2024 to Today) Date Procedures Providers Loc / Dept 11/16/2025 REMOVAL HARDWARE PELVIS. Johnnie Hong M.D.Nga Ludwig M.D. [facility] Cyndee Evy Martin was taken to [...] For any further details please see the [facility] orthopedic surgery progress note and any other co-managing teams dated 11/17/2025. INGS FINISHER documented in this encounter Plan of Treatment Not on file documented as of this encounter Procedures Procedure NamePriorityDate/TimeAssociated DiagnosisCommentsADULT OXYGEN THERAPY Rnhmtns1211/16/2025 8:33 AM CSTDX PELVIS 1-2 VIEWSRAD - Routine (most inpatients and all outpatients)11/16/2025 8:32 AM FITTINGS FINISHER ANTIBODY FHVETUFLYPSBOHZZIF07/26/2025 6:55 AM FITTINGS FINISHER CBC WITHOUT DIFFERENTIAL, BSTAT101/17/2025 6:55 AM FITTINGS FINISHER TYPE AND OEAJRZGOLG37/26/2025 6:55 AM FITTINGS FINISHER CREATININE WITH EGFR, S/PSTAT101/17/2025 6:55 AM FITTINGS FINISHER documented in this encounter Results * DX Pelvis 1-2 Views (11/16/2025 8:32 AM FITTINGS FINISHER)Anatomical RegionLaterality ModalityPelvis, Musculoskeletal RST LOS, Musculoskeletal ARZ LOS, Muskuloskeletal FLA LOSN/ADigital RadiographySpecimen (Source)Anatomical Location / LateralityCollection Method / VolumeCollection TimeReceived Time Impressions 11/16/2025 8:49 AM FITTINGS FINISHER Screws have been removed from the pelvis since 10/19/2025. No residual hardware seen. Left periacetabular osteotomy. 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 Narrative 11/16/2025 8:49 AM FITTINGS FINISHER EXAM: DX PELVIS 1-2 VIEWS Procedure Note Shola Bess M.D. - 11/16/2025 EXAM: DX PELVIS 1-2 VIEWS IMPRESSION: Screws have been removed from the pelvis since 10/19/2025. No residualhardware seen. Left periacetabular osteotomy. Mild arthritic changes ofboth hips with cam morphology. Authorizing ProviderResult TypeResult Martha Ugalde M.D.IM DIAGNOSTIC IMAGING PROCEDURESFinal Result * Antibody Identification, Erythrocytes (11/16/2025 6:55 AM FITTINGS FINISHER)ComponentValue Ref RangeTest MethodAnalysis TimePerformed AtPathologist SignatureAntibody IdentificationNo antibody yssyggjk33/26/2025 9:51 AM CSTDTLSpecimen (Source) Anatomical Location / LateralityCollection Method / VolumeCollection Time Received Time11/16/2025 6:55 AM CST11/16/2025 7:40 AM FITTINGS FINISHER Narrative [facility] - 11/16/2025 9:51 AM FITTINGS FINISHER Specimen Information: Specimen ID: [id number] Specimen Collection Start Date: 11/16/2025 ??6:55 AM Specimen Received Date: 11/16/2025 ??7:40 AM Specimen ID: [id number] Specimen Collection Start Date: 11/16/2025 ??6:55 AM Specimen Received Date: 11/16/2025 ??7:40 AM Authorizing ProviderResult TypeResult Martha Ugalde M.D.LAB BLOOD BANK TEST ORDERABLESFinal ResultPerforming OrganizationAddressCity/State/ZIP Code Phone Number [facility] [address] [place] [address], [facility] DTL [facility] [address] [place] [address] * Type and Screen (with Reflex Antibody ID) (11/16/2025 6:55 AM FITTINGS FINISHER)Component ValueRef RangeTest MethodAnalysis TimePerformed AtPathologist SignatureABORhO PosNot epcsldmjly28/26/2025 8:15 AM CSTETRMAntibody ScreenPositiveNegative 11/16/2025 8:46 AM CSTETRMType & Screen Inctrkbjbl13/29/2025 23:5911/16/2025 8:15 AM CSTETRMTesting LocationRoche[place] DEFAULT 11/16/2025 7:40 AM CSTETRMSpecimen (Source)Anatomical Location / Laterality Collection Method / VolumeCollection TimeReceived TimeBlood (Blood, Venous) 11/16/2025 6:55 AM CST11/16/2025 7:40 AM FITTINGS FINISHER Narrative Authorizing ProviderResult TypeResult StatusRaangelito Ugalde M.D.LAB BLOOD BANK TEST ORDERABLESFinal ResultPerforming OrganizationAddressCity/State/ZIP Code Phone Number [facility] [address] [place] [address], [facility] ETRM [facility] [address] [place] [address] * CBC without Differential (11/16/2025 6:55 AM FITTINGS FINISHER)ComponentValueRef RangeTest MethodAnalysis TimePerformed AtPathologist UgtnvsjgyOrmqwcuuaa88.611.6 - 15.0 g/dL11/16/2025 7:25 AM URSIYZRMrbgztnada14.535.5 - 44.9 %11/16/2025 7:25 AM CSTMETHErythrocytes4.713.92 - 5.13 x10(12)/L101/17/2025 7:25 AM DRIVJWDRGT47.9 78.2 - 97.9 fL11/16/2025 7:25 AM CSTMETHRBC Distrib Width12.712.2 - 16.1 % 11/16/2025 7:25 AM CSTMETHPlatelet Otqge846318 - 371 x10(9)/L101/17/2025 7:25 AM CSTMETHLeukocytes8.13.4 - 9.6 x10(9)/L101/17/2025 7:25 AM CSTMETHSpecimen (Source)Anatomical Location / LateralityCollection Method / VolumeCollection TimeReceived TimeBlood (Blood, Venous)11/16/2025 6:55 AM CST11/16/2025 7:22 AM FITTINGS FINISHER Narrative Authorizing ProviderResult TypeResult StatusLenin Ugalde M.D.LAB BLOOD ADD-ON Final ResultPerforming OrganizationAddressCity/State/ZIP CodePhone Number [facility] [address] [place] [address], [address] [address] * Creatinine with Estimated GFR (11/16/2025 6:55 AM FITTINGS FINISHER)ComponentValueRef Range Test MethodAnalysis TimePerformed AtPathologist SignatureCreatinine0.660.59 - 1.04 mg/dL11/16/2025 8:03 AM CSTMETHEstimated GFR (eGFR)>90>=60 mL/min/BSA 11/16/2025 8:03 AM CSTMETHComment: Estimated GFR calculated using the 2020 CKD_EPI creatinine equation. Specimen (Source)Anatomical Location / LateralityCollection Method / Volume Collection TimeReceived TimeBlood (Blood, Venous)11/16/2025 6:55 AM FITTINGS FINISHER 11/16/2025 7:22 AM FITTINGS FINISHER Narrative Authorizing ProviderResult TypeResult Martha Ugalde M.D.LAB BLOOD ADD-ON Final ResultPerforming OrganizationAddressCity/State/ZIP CodePhone Number [facility] [address] [place] [address], [facility] [address] [place] [address] documented in this encounter Visit Diagnoses Diagnosis Aftercare Removal Orthopedic Hardware Postop Non-Injury Pain Hip Left documented in this encounter Admitting Diagnoses Diagnosis [...] Wed11/16/25 at 1800 Given11/17/2025 11:18 AM CST1,000 gaJoybv6011/17/2025 5:05 AM CST1,000 mgGiven 11/16/2025 11:35 PM [...] Wed11/16/25 at 2100 Given11/17/2025 9:42 AM CST81 cwInmgb4311/16/2025 8:30 PM CST81 mg benzocaine-menthoL 15-3.6 mg [...] transplant, solitary kidney etc Given11/17/2025 9:42 AM RJB322 mg dextroamphetamine-amphetamine tablet 10 mg (Adderall) 10 mg, oral, 2 times daily with morning and midday meals, First dose on Wed11/17/25 at 0800 Given11/17/2025 11:22 AM CST10 cuAimla3611/17/2025 7:45 AM CST10 mg fentaNYL injection 25 mcg (Sublimaze) 25 mcg, intravenous, Every 2 min PRN, For pain 4 or greater (maximum 100 mcg). If max dose of Fentanyl is reached and if pain is greater than 4, discontinue Fentanyl: give Hydromorphone, Starting on Wed11/16/25 at 0833, PACU (only) Given11/16/2025 8:52 AM CST25 wgkRdwug89/26/2025 8:50 AM CST25 mcgGiven 11/16/2025 8:45 AM [...] additional analgesic benefit. Given11/16/2025 11:35 PM CST15 woIqsjx6111/16/2025 7:10 PM CST15 mg Lactated Ringer's 20 [...] Second line therapy Given11/17/2025 9:42 AM CST5 nnTnewa9011/17/2025 4:01 AM CST5 cfLsnji0311/16/2025 8:31 PM CST5 mg prochlorperazine injection 5 [...] chew or open capsule. Given11/17/2025 9:42 AM KXF532 mg ROPivacaine (PF) 2 mg/mL (0.2 %) injection (Naropin) As needed, Starting on Wed11/16/25 at 0807, Intra-Op Given11/16/2025 8:07 AM CST20 mLLeft Hip scopolamine base 1 mg over 3 days 1 patch (Transderm-Scop) 1 patch, transdermal, Administer over 72 Hours, Every 72 hours, First dose on Wed11/16/25 at 0745,For 1 dose, Pre-Op, Contains 1.5 mg to deliver 1 mg/72 hours. Medication Ucycpoc6211/16/2025 7:23 AM CST1 patchBehind Right Ear sennosides-docusate sodium 8.6-50 mg per tablet 1 tablet (Senokot-S) 1 tablet, oral, 2 times daily, First dose on Wed11/16/25 at 2100, Do not give if patient has diarrhea. Given11/17/2025 9:42 AM CST1 powwlyWpnxj42/26/2025 8:31 PM CST1 tablet traMADoL tablet 100 [...] 18 years and older Given11/16/2025 11:13 AM VCZ838 mg traMADoL tablet 100 mg (Ultram) 100 [...] 18 years and older Given11/17/2025 11:20 AM ORR651 cnXndum0711/17/2025 12:15 AM MPG155 mgGiven 11/16/2025 6:54 PM KGJ892 mg traMADoL tablet 50 mg (Ultram) 50 mg, oral, Every 6 hours PRN, moderate pain or score 4-6 of 10, Starting on Wed11/16/25 at 1730,First line therapy, Restriction Criteria (Pharmacy will review and approve if criteria met): Use inadults 18 years and older documented in this encounter Active and Recently Administered Medications Times are shown in FITTINGS FINISHER.Medication Order11/15/20241123//88582401/18/2025 acetaminophen tablet 1,000 mg (TylenoL) (COMPLETED) 1,000 mg, oral, Once, On Wed11/16/25 at 0745, For 1 dose, Pre-Op * 0723 (Given - Provider: Fiordaliza Zamora RMervin) acetaminophen tablet 1,000 mg (TylenoL) 1,000 mg, oral, Every 6 hours, First dose on Wed11/16/25 at 1800 * 1910 (Given - Provider: Emili Venegas RMervin) * 2335 (Given - Provider: Dilia Cee) * 0505 (Given - Provider: Dilia Cee) * 1118 (Given - Provider: Priya Edwards R.N.) aprepitant injection 32 mg (Aponvie) (COMPLETED) 32 mg, intravenous, Once, On Wed11/16/25 at 0745, For 1 dose, Pre-Op, Restriction Criteria (Pharmacy will review and approve if criteria met): Meet restriction criteria * 0723 (Given - Provider: Fiordalizastefani Zamora R.N.) aspirin chewable tablet 81 mg [...] (Given - Provider: Emili Venegas R.N.) * 9791 (Given - Provider: Dilia Cee) midazolam (PF) [...] (Given - Provider: Priya Edwards R.N.) Medication Order/ Lactated Ringer's 75 mL/hr, intravenous, Continuous, Starting [...] score 7-10 of 10, Starting on Wed11/16/25 ox0933, For 3 doses, PACU & Post-Op, May [...] * 1353 (Given - Provider: Laure Mart RMervin) oxyCODONE IR tablet 10 mg (Roxicodone) (COMPLETED) 10 mg, oral, Once as needed, For pain 4 or greater, Starting on Wed11/16/25 at 0833, For 1 dose, PACU (only) * 2743 (Given - Provider: Reagan Posada R.N.) oxyCODONE [...] prescribed medication based on patient request * 2030 (See Alternative - Provider: Dilia Cee) * 040 (See Alternative - Provider: Dilia Cee) * 0942 (See Alternative - Provider: Priya Edwards R.N.) oxyCODONE IR tablet 5 mg (Roxicodone)(Linked Group 2) 5 mg, oral, Every 4 hours PRN, moderate pain or score 4-6 of 10, Starting on Wed11/16/25 at 1730, Second line therapy * 2030 (Given - Provider: Dilia Cee) * 040 (Given - Provider: Dilia Cee) * 0942 [...] 0807, Intra-Op * 0807 (Given - Provider: Nga Ludwig M.D.) traMADoL tablet 100 mg (Ultram) [...] 1113 (Given - Provider: Erika Castorena R.N., C.M.S.R.NRoosevelt) traMADoL tablet 100 mg (Ultram)(Linked Group 4) [...]
--- OUTSIDE RECORDS SUMMARY | 2025-11-16 07:38 | XMS_ITS | Encounter Summary ---
Author Organization [facility] Address [address] [place] [address] Care Team Providers Care Integrity Specialist Name Role Phone Elsewhere, Pcp Primary Care Provider Unavailabl e Reason for Visit * Auth/Cert (Routine)SpecialtyDiagnoses / ProceduresReferred By ContactReferred To Contact Diagnoses Aftercare Removal Orthopedic Hardware Postop Non-Injury Aftercare Removal Orthopedic Hardware Postop Non-Injury [Z47.2] Procedures CO RMVL IMPLANT DEEP REMOVAL HARDWARE PELVIS Lenin Ugalde M.D. [address] [place] [address] Phone: tel: fax: Referral IDStatusReasonStart DateExpiration DateVisits RequestedVisits [id number] Encounter Details DateTypeDepartmentCare Team (Latest Contact Info)Adjzmmgwjbc94/26/2025 7:38 AM CSTAnesthesia Event [facility] [address] [place] [id number] Homero Stauffer M.D. [address] [place] [phone] Karla Monroy R.N. Anesthesia Record Procedure NameResponsible AnesthesiologistAnesthesia Start TimeAnesthesia Stop TimeREMOVAL HARDWARE PELVIS. (Left: Hip)Homero Stauffer M.D.11/16/25 0738 11/16/25 7697WglmQoutXjheyEydkada61/26/[id number] StartMachine/Equipment Checked Infection Precautions Followed Procedure/Site Verified NPO Status Verified Supine Standard ASA Monitors [id number] [id number] Reybitjrtc5702 Turnover to Bdjzakjhtpjbl1118Zkmv Tvicx2614Qrur Ijw1745Rahlttxc to ANE Vqrhq9712 Airway Removal Criteria Dzf9009Yemyyysbut/Airway Ihryhsx6474jj stop beah3128Hm EndI completed my handoff to the receiving staff during which we 1. Identified the patient 2. Identified the responsible provider 3. Reviewed the pertinent medical history 4. Discussed the surgical course 5. Reviewed intra-op anesthesia management and issues during anesthesia 6. Set expectations for post-procedure period 7. Allowed opportunity for questions and acknowledgement of understanding.* NameTotalfentanyl injection 50 mcg/mL100 mcglidocaine 2% (mg) kleyvsylu71 mgondansetron 4 mg/2 mL injection4 mgpropofol 10 mg/mL infusion 397.39 mgpropofol 10 mg/mL qwavfgfyt012 mgceFAZolin injection 2,000 mg (Ancef) 2 gdexmedeTOMIDine 80 mcg/20 mL (4 mcg/mL) in NaCl 0.9% syringe for OR12 mcg HYDROmorphone (Dilaudid) PF injection 2 mg/mL1 mgdexAMETHasone (Decadron) injection 4 mg/mL8 mgketorolac (ToradoL) injection 30 mg/mL15 mgLactated Ringers Free Ucfv372 mL * Agents No agents on file. * Blood No blood administrations on file. VfguEbszjffIgkiwbwhkJinyynrUlspw96/26/25; Surgical; Closed Surgi; Hip; Anterior, Left11/16/25 0000 by Viktoria Denton RRooseveltNRooseveltPeripheral IVPlacement Date: 11/16/25; Placement Time: 0655; Catheter Size: 20 G; Orientation: Anterior, Distal,Lower, Right; Location: Forearm; Site Prep: Chlorhexidine (Preferred); Technique: Anatomical landmarks; Inserted by: abran; Insertion Attempts: 1; Removal Date: 11/17/25; Removal Time: 075; Removal Reason: Patient discharged 11/16/25 0655 by Cheryl Navas R101/18/25 0757 by Priya Edwards RMervinSupraglottic AirwayPlacement Date: 11/16/25; Placement Time: 743 (created via procedure documentation); Mask Ventilation: Easy mask; Brand: Unique; Size: 4; Removal Date: 11/16/25; Removal Time: 743 by Karla Monroy, R.N.11/16/25821 by Karla Monroy, RDev.documented in this encounter Social History Tobacco UseTypesPacks/DayYears UsedDateSmoking Tobacco: NeverPassive [...] RecordedIn the past 12 months has the electric, gas, oil, or water company threatened to shut off services in your home?No11/16/2025Postpartum DepressionAnswerDate RecordedPHQ-9 Total Score (max 27)Housing StabilityAnswerDate RecordedWhat is your living situation today?I have a steady place to live11/16/2025EducationAnswerDate RecordedWhat is the highest level of school you have completed or the highest degree you have received?Associate degree: occupational, technical, or vocational program 01/25/2022CommentsNoSex and Gender InformationValueDate RecordedSex Assigned at CfaiwPpyekz79/06/2022 5:37 PM CSTLegal ZheEzsmbe95/04/2018 6:08 PM CDTGender GkavthamSqlbtz47/06/2022 5:37 PM CSTSexual OrientationStraight 01/25/2022 5:37 PM CSTdocumented as of this encounter OR Notes * Anesthesia Postprocedure Evaluation - Marija Roman M.B., B.Ch., B.A.O. - 11/16/2025 9:25 AM CST Patient: Cyndee Martin Procedure Summary Date: 11/16/25 Room / Location: [address] / [facility] in [place], [place] Anesthesia Start: 737 Anesthesia Stop: 837 Procedure: REMOVAL HARDWARE PELVIS. (Left: Hip) Diagnosis: Aftercare Removal Orthopedic Hardware Postop Non-Injury Pain Hip Left (Aftercare Removal Orthopedic Hardware Postop Non-Injury [Z47.2], Pain Hip Left [M25.552],) (s/p Left HS + NIRAV, 04/20/2025.) Providers: Johnnie Hong M.D. Responsible Provider: Homero Stauffer M.D. Anesthesia Type: general ASA Status: 2 Anesthesia Type: general Last vitals Vitals Value Taken Time BP 114/71 11/16/25 09:00 Temp 36.8 ??C 11/16/25 08:55 Pulse 69 11/16/25 09:02 Resp 19 11/16/25 09:02 SpO2 98 % 11/16/25 09:02 Vitals shown include unfiled device data. Please reference Vitals flowsheet for most recent vital signs. Anesthesia Post Evaluation Patient Disposition: general care unit Cardiovascular status: hemodynamics (HR & BP) acceptable Respiratory status: patent airway with spontaneous effort Temperature: normothermic Oxygen requirements: room air Level of consciousness: awake Pain score: pain adequately controlled and/or at baseline Post Op nausea/vomiting: none Hydration status: euvolemic Notable Events No notable events documented. ER HAND * Anesthesia Procedure Notes - Karla Monroy R.N. - 11/16/2025 7:55 AM SHAPER HAND Associated Order(s): Airway Airway Date/Time: 11/16/2025 7:44 AM Performed by: Karla Monroy R.N. Authorized by: Homero Stauffer M.D. Patient location during procedure: OR / Procedure Area PROCEDURE DETAILS: Mask difficulty assessment: easy mask Final airway type: supraglottic airway Device size: 4 Number of attempt to successful placement: 1 Supraglottic device: LMA unique Supraglottic device size: 4 Airway confirmation: bilateral breath sounds, positive ETCO2 and bilateral chest rise Other previous techniques attempted: none PRE PROCEDURE DETAILS: Pre evaluation for airway management: procedure Urgency: elective Preop assessment of probable difficulty: questionable / suspicious difficult airway Preoxygenation: bag valve mask SEDATION / ANESTHESIA Anesthesia method: anesthesia POST PROCEDURE DETAILS: Procedure outcome: successful Notable Events: no complications ER HAND * Anesthesia Preprocedure Evaluation - Homero Stauffer M.D. - 11/16/2025 7:15 AM CST Preprocedure Anesthesia & H&P Assessment Procedure Summary Date/Time: 11/16/25 0725 Procedure: REMOVAL HARDWARE PELVIS. (Left) Diagnosis: Aftercare Removal Orthopedic Hardware Postop Non-Injury [Z47.2] Pain Hip Left [M25.552] Pre-op diagnosis: Aftercare Removal Orthopedic Hardware Postop Non-Injury [Z47.2], Pain Hip Left [M25.552], s/p Left HS + NIRAV, 04/20/2025. Location: [address] / [facility] in [place], [place] Providers: Johnnie Hong M.D. Pertinent components of the patient's history including current problem list, medical history, surgical history, family history, social history, medications and allergies were reviewed. Present illness and pre-op diagnosis were confirmed. The planned surgery / procedure was verified with the patient / legal guardian. The patient's general health condition remains unchanged RELEVANT COMORBID CONDITIONS NEURO (+) Deficiency Vitamin B12 PSYCH (+) Depression Major One Episode Moderate (HCC) GI (+) Gastroesophageal Reflux Disease Without Esophagitis Other (+) Obesity Body Mass Index 30-39.9 Adult OBJECTIVE PHYSICAL EXAMINATION Airway (HEENT) Mallampati: III TM Distance: >3 FB Neck ROM: Full Mouth Opening: >3 cm Cardiovascular Rhythm: Regular Rate: Normal Cardiovascular Assessment: cardiovascular normal Functional Capacity: >4 METS Pulmonary Pulmonary Assessment: Clear General / Constitutional Constitutional Assessment: Normal General State of Health:: healthy appearing Neurological Neurologic Assessment: alert and alert and oriented x 3 Dental Dental Assessment: dentition intact ASSESSMENT / PLAN ANESTHESIA PLAN ASA: 2 Anesthesia Plan: general Pre-op scopolamine and aprepitant Last surgery pain control was a problem, will increase dose of dilaudid and forego ketamine given prior experience Patient seen and allergies reviewed, anesthesia plan and risks discussed directly with patient /legal guardian or through an spanish interpreter/translator. Risks/Benefits/Alternatives of Blood transfusion discussed with patient / legal guardian, includingan opportunity to ask questions and/or decline some or all transfusion therapies. The patient / legal guardian consented to the use of all blood products, as deemed medically necessary Approval to Proceed: approved for anesthesia ER HAND ER HAND ER HAND documented in this encounter Plan of Treatment Not on file documented as of this encounter Procedures Procedure NamePriorityDate/TimeAssociated DiagnosisCommentsLDA ANE NON-SURGICAL TJEQUFFhuupop77/26/2025 7:44 AM SHAPER HAND documented in this encounter Results * LDA ANE NON-SURGICAL AIRWAY (11/16/2025 7:44 AM SHAPER HAND) Narrative Karla Monroy R.N. - 11/16/2025 7:44 AM SHAPER HAND Karla Monroy R.N. 11/16/2025 7:55 AM Airway Date/Time: 11/16/2025 7:44 AM Performed by: Karla Monroy R.N. Authorized by: Homero Stauffer M.D. ?? Patient location during procedure: OR / Procedure Area PROCEDURE DETAILS: Mask difficulty assessment: easy mask Final airway type: supraglottic airway Device size: 4 Number of attempt to successful placement: 1 Supraglottic device: LMA unique ?? Supraglottic device size: 4 ?? Airway confirmation: bilateral breath sounds, positive ETCO2 and bilateral chest rise Other previous techniques attempted: none PRE PROCEDURE DETAILS: Pre evaluation for airway management: procedure Urgency: elective Preop assessment of probable difficulty: questionable / suspicious difficult airway Preoxygenation: bag valve mask SEDATION / ANESTHESIA Anesthesia method: anesthesia POST PROCEDURE DETAILS: ? Procedure outcome: successful ?? Notable Events: no complications Authorizing ProviderResult TypeResult StatusGuyosi Stauffer M.D.ANESTHESIA ORDERABLESFinal Result documented in this encounter Visit Diagnoses Not on filedocumented in this encounter Administered Medications Medication OrderMAR ActionAction DateDoseRateSite ceFAZolin injection 2,000 mg (Ancef) 2,000 mg (rounded from 1,980 mg = [...] indication anddrug clearance factors., Indications: Prophylaxis, surgical Indications:Prophylaxis, lvbxpzztPvdgj56/26/2025 7:55 AM CST2 g dexAMETHasone injection (Decadron) intravenous, As needed, Starting on Wed11/16/25 at 0756, Anesthesia Intra-op Given11/16/2025 7:56 AM CST8 mg dexmedeTOMIDine 80 mcg/20 mL (4 mcg/mL) injection (Precedex) intravenous, As needed, Starting on Wed11/16/25 at 0746, Anesthesia Intra-op Given11/16/2025 7:46 AM CST12 mcg fentaNYL injection (Sublimaze) intravenous, As needed, Starting on Wed11/16/25 at 0742, Anesthesia Intra-op Given11/16/2025 7:42 AM BPM783 mcg HYDROmorphone (PF) injection (Dilaudid) intravenous, As needed, Starting on Wed11/16/25 at 0753, Anesthesia Intra-op Given11/16/2025 8:34 AM CST0.2 wlZjqsw8211/16/2025 8:22 AM CST0.2 mgGiven 11/16/2025 7:53 AM CST0.6 mg ketorolac injection (ToradoL) intravenous, As needed, Starting on Wed11/16/25 at 0802, Anesthesia Intra-op Given11/16/2025 8:02 AM CST15 mg Lactated Ringer's intravenous, Continuous Infusion: Per Instructions PRN, Starting on Wed11/16/25 at 0739, Anesthesia Intra-op New Bag11/16/2025 7:39 AM SHAPER HAND lidocaine (PF) (cardiac) injection intravenous, As needed, Starting on Wed11/16/25 at 0742, Anesthesia Intra-op Given11/16/2025 7:42 AM CST80 mg ondansetron (PF) injection (Zofran) intravenous, As needed, Starting on Wed11/16/25 at 0756, Anesthesia Intra-op Given11/16/2025 7:56 AM CST4 mg propofol 10 mg/mL infusion (Diprivan) intravenous, Continuous Infusion: Per Instructions PRN, Starting on Wed11/16/25 at 0742, Anesthesia Intra-op Rate/Dose Pwshqp8811/16/2025 8:07 AM CST80 mcg/kg/min42.864 mL/hrRate/Dose Change 11/16/2025 8:05 AM THC393 mcg/kg/min53.58 mL/hrNew Bag11/16/2025 7:42 AM HNA815 mcg/kg/min80.37 mL/hr propofoL injection (Diprivan) intravenous, As needed, Starting on Wed11/16/25 at 0743, Anesthesia Intra-op Given11/16/2025 8:12 AM CST20 ntVbswc8911/16/2025 7:56 AM CST30 sfGawoh9111/16/2025 7:45 AM CST50 mgdocumented in this encounter Additional Health Concerns AssessmentNoted TimePHQ-9 Depression Total Score: 5:14 PM CDT documented as of this encounter Care Teams Team MemberRelationshipSpecialtyStart DateEnd Date Elsewhere, Pcp PCP - GeneralInternal Medicine03/21/25documented as of this encounter
[2025-11-17 19:24] VITALS: BP 144/96; PULSE 62; RESP 14; TEMP 37.3; O2SAT 93
--- NOTE | 2025-11-17 20:09 | ED.GENADULT ---
HPI - General Adult General Chief complaint: Post Op Complication Stated complaint: Post Surgery complications Time Seen by Provider: 11/17/25 20:09 History of Present Illness HPI narrative: Pt one day post op for removal of screws in left hip from NIRAV surgery that originally occurred months ago. Pt complains of pain at incision site that radiates all over the left hip. Pt states surgery occurred at [facility] in [place]. Pt states she had post-op urinary retention so she stayed overnight at [facility] and came home this morning. Pt states she did not update [facility] of this issue. Last dose tramadol 100 mg at 1715, tylenol 1000 mg 1545, oxycodone 5 mg at 0945. Pt's mother states pt is due for oxycodone tonight. Pt's states she feels very unstable and did not feel this way when right hip was done five years ago. 20-year-old woman presenting to the emergency department with concern of pain in the left hip area. Yesterday had removal of screws in her left hip from periacetabular osteotomy procedure for hip dysplasia done some months ago. Did have trouble with urinary retention so spent last night. Spreading burning pain uncontrolled with medications with which she was discharged. Screw removal was done yesterday. Last urinated about 4-1/2 hours prior to this interview. Is upset as she has had a number of procedures, surgeries now and feeling this pain is rather upsetting. This feels atypical. It feels unstable. Incision/surgical site also unfortunately looks janky now. No fever. Has medications in the form of tramadol, acetaminophen and oxycodone. Does have a history of same procedure in the right hip. no noted injury. swelling also present in the upper thigh on the left. Related Data Home Medications ?Medication ?Instructions ?Recorded ?Confirmed aspirin 81 mg capsule 81 mg PO DAILY 11/17/25 11/17/25 celecoxib .ROUTE DAILY 11/17/25 dextroamphetamine-amphetamine 10 10 mg PO BID 11/17/25 11/17/25 mg tablet (Adderall) oxycodone 5 mg capsule 5 mg PO Q6H 11/17/25 11/17/25 propranolol 120 mg capsule,24 120 mg PO DAILY 11/17/25 11/17/25 hr,extended release tramadol 50 mg tablet 50 mg PO Q6H 11/17/25 11/17/25 Previous Rx's ?Medication ?Instructions ?Recorded oxycodone 5 mg tablet 5 mg PO Q4-6H PRN pain #14 tabs 11/18/25 Allergies Allergy/AdvReac Type Severity Reaction Status Date / Time No Known Drug Allergies Allergy Verified 11/17/25 19:34 Review of Systems Status of ROS: Reports: 6 or more systems reviewed and unremarkable except as noted in History and below Exam Narrative: Exam Narrative: Pleasant. Breathing easily. Appears a little stressed. Surgical bandage at left upper hip. Underneath the bandage shows a heaped up scar margin at the anterior left hip without inflammatory change. There is induration tense and little tender on the upper left thigh. Does not feel fluctuant. Const: Vital Signs, click to edit/add: Vital Signs - 24 hr 11/17/25 19:24 Temperature 99.1 F Pulse Rate [Pulse Oximeter] 62 Respiratory Rate 14 Blood Pressure [Ri ght Upper Arm] 144/96 H Pulse Oximetry 93 Oxygen Delivery Me thod Room Air Documenting provider has reviewed patient's vital signs: yes Course Vital Signs Vital signs: Initial Vital Signs Temperature 99.1 F 11/17/25 19:24 Temperature Source Temporal Artery Scan 11/17/25 19:24 Pulse Rate 62 11/17/25 19:24 Respiratory Rate 14 11/17/25 19:24 Blood Pressure 144/96 H 11/17/25 19:24 Blood Pressure Mean 112 H 11/17/25 19:24 Blood Pressure Position Sitting 11/17/25 19:24 Pulse Oximetry 93 11/17/25 19:24 Oxygen Delivery Method Room Air 11/17/25 19:24 Vital Signs Temperature 99.1 F 11/17/25 19:24 Pulse Rate 62 11/17/25 19:24 Respiratory Rate 14 11/17/25 19:24 Blood Pressure 144/96 H 11/17/25 19:24 Pulse Oximetry 93 11/17/25 19:24 Oxygen Delivery Method Room Air 11/17/25 19:24 Temperature 99.1 F 11/17/25 19:24 Pulse Rate 55 L 11/17/25 23:01 Respiratory Rate 16 11/17/25 23:01 Blood Pressure 117/72 11/17/25 23:01 Pulse Oximetry 97 11/17/25 23:01 Oxygen Delivery Method Room Air 11/17/25 23:01 Medications Administered Medications: Discontinued Medications Generic Name Dose Route Start Last Admin Trade Name Spencer PRN Reason Stop Dose Admin Hydromorphone HCl 0.5 mg 11/17/25 20:30 11/17/25 20:45 Hydromorphone 0.5 Mg/0.5 Ml Inj IVP 11/17/25 20:31 0.5 mg ONCE ONE Administration Sodium Chloride 500 mls @ 500 mls/hr 11/17/25 20:30 11/17/25 21:48 0.9 % Sodium Chloride 500 Ml IV 11/17/25 21:29 Infused .Q1H ONE Infusion Ketorolac Tromethamine 30 mg 11/17/25 20:30 11/17/25 20:45 Ketorolac 30 Mg/Ml Inj IVP 11/17/25 20:31 30 mg ONCE ONE Administration Oxycodone/Acetaminophen 2 tab 11/17/25 22:00 11/17/25 22:11 Oxycodone/Apap 5-325 Tablet PO 11/17/25 22:01 2 tab ONCE ONE Administration Medical Decision Making MDM Narrative Medical decision making narrative: Likely too soon to be showing an infection. Might be radiating pain from urinary retention. She may also be experiencing seroma or other fluid collection, hematoma. I suspect the swelling in the anterior upper thigh is related to draining inflammatory changes but might represent hematoma. I am not sure that has been aggressive enough with pain medication. Certainly there is room to expand this. She would like immediate pain relief if possible. bladder scan with minimal. I did discuss that pain may be different than prior for a variety of factors known or unspecified. Might be some more nerve irritation at this point for some reason. no noted surgical complication. placing IV. Will give ketorolac and normal saline ( Partly in anticipation of possible contrasted imaging) and initial dose of Dilaudid. check standard labs for indication of infection or unusual anemia from further workup. On reassessment notes minimal to no improvement. Labs however are reassuring. Per concern can offer imaging that might further explain symptoms, looking for fluid collection. they would appreciate this. Also given 2 tabs of Percocet. Had only taken 1 tablet of oxycodone early this morning. by my independent review contrasted CT of hip does not reveal any fluid collection they are relieved at these or rather lack off findings. radiology over-read below INDICATION: Postoperative pain. Patient is status post removal of hardware for prior periacetabular osteotomy. TECHNIQUE: Multiplanar CT examination of the left hip was performed without the use of intravenous contrast. COMPARISON: None. FINDINGS: Postoperative changes of prior left periacetabular osteotomy with recent reported removal of surgical hardware. There is a persistent non healed pubic root osteotomy site (series 2, image 44); series 3, image 145) with minimal callus formation inferiorly. Ischial and iliac osteotomy sites appear well healed. No definite acute fracture, dislocation, or suspicious osseous lesion identified. No significant hip joint effusion. No soft tissue mass or fluid collection. Visualized pelvic contents demonstrate no acute or suspicious abnormality. IMPRESSION: 1. Left periacetabular osteotomy with persistent non healed pubic root osteotomy site, concerning for delayed healing. 2. Ischial and iliac osteotomy sites healed. 3. No definite acute fracture. Please note that all CT scans at this facility use dose modulation, iterative reconstruction, and/or weight-based dosing when appropriate to reduce radiation dose to as low as reasonably achievable. Dictated by Jalen Quiroz MD @ 11/17/2025 11:52:41 PM Pain has finally been adequately controlled upon reassessment. see patient discharge plan for further discussion Try to stay ahead of the pain especially in the short term. Can take perhaps 600 mg of ibuprofen 3 times daily short-term instead of your Celebrex. Either can be combined with up to 1000 mg of acetaminophen per dose. As discussed prescribing Percocet from [facility]. Each tablet contains 5 mg of oxycodone and 325 mg of acetaminophen. Take this disc of images with you and CT read for follow-up. (unfortunately maximum quantity available for Percocet in [facility] currently is 4. I have sent in another prescription to your pharmacy. You can fill the script for 4 here and/or the ones at your pharmacy) Medical Records Medical records reviewed: Yes I reviewed the patient's medical records Lab Data Lab results reviewed: Yes I reviewed the patient's lab results Labs: Lab Results 11/17/25 Range/Units 20:41 WBC 8.10 (4.50-11.00) K/uL RBC 4.62 (4.00-5.20) m/uL Hgb 13.1 (12.0-16.0) gm/dL Hct 40.8 (33.0-51.0) % MCV 88 (80-100) fL MCH 28 (26-34) pg MCHC 32 (32-36) gm/dL RDW Coeff of Jim 12.7 (11.5-15.5) % Plt Count 349 (140-440) K/uL Neut % (Auto) 57.1 (42.0-72.0) % Lymph % (Auto) 34.8 (20-44) % [place] % (Auto) 6.5 (0.0-11.0) % Eos % (Auto) 1.1 (0.0-7.0) % Baso % (Auto) 0.4 (0.0-3.0) % Neut # (Auto) 4.62 (1.7-7.0) K/uL Lymph # (Auto) 2.82 (0.90-2.90) K/uL [place] # (Auto) 0.50 (0.00-0.90) K/UL Eos # (Auto) 0.09 (0.00-0.50) K/uL Baso # (Auto) 0.03 (0.00-0.30) K/uL Abs Immat Gran (auto) 0.01 (0.00-0.30) K/uL Imm/Tot Granulo (auto) 0.1 % Sodium 136 (135-149) mmol/L Potassium 4.0 (3.6-5.1) mmol/L Chloride 105 (96-114) mmol/L Carbon Dioxide 25 (20-32) mmol/L Anion Gap 6 L (7-15) mEq/L BUN 10 (5-24) mg/dL Creatinine 0.7 (0.5-1.5) mg/dL Estimated GFR 125 ml/min Glucose 93 (60-115) mg/dL Calcium 9.2 (8.4-10.6) mg/dL Discharge Plan Discharge Clinical Impression: Post-operative pain Patient Disposition: Home w/ Parent or Adult Condition: Improved Additional Instructions: Try to stay ahead of the pain especially in the short term. Can take perhaps 600 mg of ibuprofen 3 times daily short-term instead of your Celebrex. Either can be combined with up to 1000 mg of acetaminophen per dose. As discussed prescribing Percocet from [facility]. Each tablet contains 5 mg of oxycodone and 325 mg of acetaminophen. Take this disc of images with you and CT read for follow-up. (unfortunately maximum quantity available for Percocet in [facility] currently is 4. I have sent in another prescription to your pharmacy. You can fill the script for 4 here and/or the ones at your pharmacy) Prescriptions: New oxycodone 5 mg tablet 5 mg PO Q4-6H PRN (Reason: pain) Qty: 14 0RF Rx Instructions: May take 1-2 tablets every 4-6 hours as needed. No Action oxycodone 5 mg capsule 5 mg PO Q6H tramadol 50 mg tablet 50 mg PO Q6H aspirin 81 mg capsule 81 mg PO DAILY celecoxib [Celebrex] .ROUTE DAILY propranolol 120 mg capsule,extended release 24 hr 120 mg PO DAILY dextroamphetamine-amphetamine [Adderall] 10 mg tablet 10 mg PO BID Rx Instructions: administer doses at least 4-6 hours apart Follow Up/Referrals: Ted Pan MD [Primary Care Provider, Family Practice] Stand Alone Forms: [employer] Info Instructions
[2025-11-17] MEDS: 0.9 % SODIUM CHLORIDE 500 ML 500 ML IV (20:45)
[2025-11-17 20:48] LABS: Hematocrit* 40.8 % (33.0-51.0); Hemoglobin* 13.1 gm/dL (12.0-16.0); Immature Granulocytes Abs Auto 0.01 K/uL (0.00-0.30); Immature Granulocytes Pct Auto 0.1 %; Lymphocytes Absolute Auto 2.82 K/uL (0.90-2.90); Mean Corpuscular HGB Conc 32 gm/dL (32-36); Mean Corpuscular Hemoglobin 28 pg (26-34); Mean Corpuscular Volume 88 fL (80-100); RDW Coefficient of Variation % 12.7 % (11.5-15.5); Red Blood Count* 4.62 m/uL (4.00-5.20); White Blood Count* 8.10 K/uL (4.50-11.00)
--- OUTSIDE RECORDS SUMMARY | 2025-11-17 20:52 | XMS_ITS | Clinical Summary ---
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 Max acetaminophen dose: 4000mg in 24 hrs.Active propranolol ER 120 mg Cs24 Sustained-Release capsule Take 120 mg by mouth once daily.5Active ubrogepant 100 mg tab tablet Take 100 mg by mouth one time if needed.5Active topiramate 50 mg tablet Indications:Migraine with aura, not intractable, without status migrainosusTake 1 Tablet (50 mg) by mouth two times daily. 180 Tablet 5Active ondansetron 8 mg disintegrating tablet Indications:Migraine with aura, not intractable, without status migrainosusPlace 1 Tablet (8 mg) on the tongue every 8 hours if needed for Nausea/Vomiting. 30 Tablet 5Active hydrOXYzine HCL 25 mg tablet Indications:AnxietyTake 1 Tablet (25 mg) by mouth every 6 hours if needed for Anxiety. 25 Tablet 5Active dextroamphetamine-amphetamine (AdderalL) 10 mg tablet Indications:Attention deficit hyperactivity disorder (ADHD), combined typeTake 1 Tablet (10 mg) by mouth two times daily. please give a 3 month supply. Patient [place] [facility] [place] 27 to November 04. 180 Tablet 5Active Active Problems ProblemNoted DateDiagnosed DateCongenital dysplasia of left hip02/21/2025Tear of acetabular bdfncc5401/26/2025ervical cancer buebuddgj56/04/2025 Overview (01/23/2025): 12/2024 NIL Plan: PAP due 12/2027 Personal history of other specified aatozfrawi33/11/2022obalamin deficiency 01/30/2022Vitamin D yrapnhwibc42/10/2022Obesity with body mass index 30 or nflsnnd3201/29/20226020Kcwhsjth97/10/2022Gastroesophageal reflux disease without cewezeqwmoy26/10/2670Jkkqdlo03/10/2022ttention deficit hyperactivity disorder (ADHD), predominantly inattentive type03/27/20190564Hwpulot16/06/2019Depression, major, single episode, deqrabxu07/06/2019Controlled substance agreement signed 03/27/2019 Overview (03/27/2019): Signed 03/27/19 [facility] Migraine with aura, not intractable, without status bprtpzmyfdd44/09/2017 Headache Overview (06/25/2014): migraine Immunizations ImmunizationAdministration DatesNext DueCOVID-19 vaccine (Movebubble 30mcg/0.3mL) PF, MDV07/09/2021,0471LInI37/29/2007,07/21/2004,2003, 2003,2003HIB PRP-OMP (PedvaxHIB)2003,2003,2003 Hepatitis A (Peds)06/30/2017,09/09/2016Hepatitis B (Peds)2003,2003, 2003,2003Human Papilloma Virus Yacixba8601/30/2015,08/27/2014, 06/25/2014Inactivated Polio Ibfbnuf4404/19/2007,2003,2003,2003 Influenza Virus, Nxnfjcxmurh43/10/2022(Deferred: Patient Refused)MENINGOCOCCAL VACCINE 2 VIAL 2MO-55YO (MENVEO)06/07/2019,06/25/2014MMR04/19/2007,2004 Pneumococcal conj 7-Valent (Prevnar 7)2003,2003,2003Tdap 08/14/2024,06/25/2014Tuberculin (PPD)01/17/2004Varicella Fdrbxqt5506/04/2008, 2004 Family History Medical HistoryRelationNameCommentsGood HealthBrother 2Good HealthFather Cancer-breastMaternal Auntdiagnosed at age 29CancerMothercervicalCancer-breast Other 1great -grandmother, maternal x2Good HealthSister 2RelationNameStatus CommentsBrother 1AliveBrother 2FatherAliveMaternal AuntAliveMotherAliveOther 1 Other 2AliveSister 1AliveSister 2 Social History Tobacco UseTypesPacks/DayYears UsedDateSmoking Tobacco: Passive Smoke Exposure - Never SmokerSmokeless Tobacco: Never Tobacco Cessation:Counseling Given: Yes Comments:mom smokes outside Alcohol UseStandard Drinks/WeekCommentsYes0 (1 standard drink = 0.6 oz pure alcohol)sociallyPHQ-2AnswerDate RecordedPHQ-2 TOTAL [id number] Resource StrainAnswerDate RecordedDifficulty of Paying Living ExpensesNot on file11/19/2021ifficulty of Paying Living ExpensesNot on file11/19/2021 Interpersonal SafetyAnswerDate RecordedAre you being hit, kicked, pushed or yelled at (see row info)?No03/12/2025Interpersonal Safety Abuse 12 - 18Not on file03/12/2025Interpersonal Safety Ambulatory VulnerabilityNot on file03/12/2025 CommentsNoSex and Gender InformationValueDate RecordedSex Assigned at BirthNot on fileLegal RmdXvxzmh44/14/2013 5:50 AM CSTGender IdentityNot on file Sexual OrientationNot on file Obstetrics History GravidaParaTermPretermABIABSABEctopicMultipleLivingLive [id number] Last Filed Vital Signs Vital SignReadingTime TakenCommentsBlood Oepxjsiu786/7006/10/2025 3:59 PM CDT Nsqma19101/12/2025 3:59 PM YESKuuqztnzbub94.8 ??C (98.3 ??F)03/12/2025 11:11 AM CDTRespiratory Wswc606403/12/2025 11:11 AM CDTOxygen Dhueywibnd49%04/11/2025 9:48 AM CDTInhaled Oxygen Concentration--Fycggz93.9 kg (174 lb)04/11/2025 9:48 AM VFJRvjgfh980.6 cm (5' 4)04/11/2025 9:48 AM CDTBody Mass Index29.8704/11/2025 9:48 AM CDT Plan of Treatment Health MaintenanceDue DateLast DoneCommentsHIV for age 15-65004/18/2018Hepatitis C screening for age 18-7904/18/2021OVID-19 vaccine series (2024- season) /, 06/18/2021Influenza Vaccine (#1)2025Depression screening for age 12+5008/14/2024, 07/18/2021, 07/16/2021, Additional history existsBMI (ht and wt on same day) for age 18+, 03/27/2025, 08/14/2024, Additional history existsPap test for age 21-65 Tetanus ljgebew85, 06/25/2014Hepatitis B series for 19+Tmwvonlsl2003, 2003, 2003, Additional history existsPneumococcal series for age 6-49Aged Out2003, 2003, 2003 No longer eligible based on patient's age to complete this topicHPV series for age 9-13Idmnqcsvy99/11/2015, 08/27/2014, 06/25/2014 Procedures Procedure NamePriorityDate/TimeAssociated DiagnosisCommentsGYN THIN PREP PAP SCREEN GICRBQJxqenbq63/18/2025 9:50 AM [employer] Pap smear for cervical cancer screening from Last 3 Months or Most Recently Relevant to Health Maintenance Results * SENIOR CONTROLS ANALYST THIN PREP PAP SCREEN IMAGED (01/09/2025 9:50 AM [employer])ComponentValueRef RangeTest MethodAnalysis TimePerformed AtPathologist SignatureCase Report Gynecologic Cytology Report ? Case: [id number] ? Authorizing Provider: ??Gertrudis Telles ?? Collected: ? 01/09/2025 0950 ? Taresa, DO ? Ordering Location: ? [facility] ?Received: ?01/09/2025 1143 ? Clinic ? First Screen: ?Notermann, Sharlene ? Specimen: ?SENIOR CONTROLS ANALYST ThinPrep Vial Screening, Cervical ? 01/23/2025 10:34 AM [facility] INTERPRETATION/RESULTNEGATIVE FOR INTRAEPITHELIAL LESION OR MALIGNANCY (NIL) (none)01/23/2025 10:34 AM [facility] at 1034 CSTSPECIMEN ADEQUACYSatisfactory for evaluation No endocervical component seen01/23/2025 10:34 AM [facility]ORYDate of LMP2/11/250201/23/2025 10:34 AM [facility]Last Pap Ckxrggit30/04/2025 10:34 AM [facility]ORYLast Pap ResultFirst Pap/Mdocues1401/23/2025 10:34 AM [facility]ORYAbnormal Pap or [place] Bx in last 5 pxqnnZt9501/23/2025 10:34 AM [facility]ORYMenstrual StatusRegular Ffztpuh7601/23/2025 10:34 AM [facility]ORYColp Bx Done LhwvxTm6301/23/2025 10:34 AM [facility]ORYAdditional InformationNone given01/23/2025 10:34 AM [facility]ATORYComment: Cytology is screened at [facility] - [address], [place] [address] and [facility] - [address] [place] [address] [address] [facility] - [address] [place] [address] Interpreted at [facility] - [address] [place] [address] [address], [place] [address] Automated AttfycMylqtdyprs51/04/2025 10:34 AM [facility]ATORYComment:Specimen processed successfully by automated it corporate recruiter device, ThinPrep Imaging System, [employer]NoteThe pap test is a screening technique, not a diagnostic procedure. It is used primarily to screen for squamous cancers and precursor lesions. Published studies have shown that it is subject to both false negative and false positive results. The pap test should not be used as the sole means to diagnose or exclude pre-malignant and malignant lesions.01/23/2025 10:34 AM [facility] Specimen (Source)Anatomical Location / LateralityCollection Method / Volume Collection TimeReceived TimeOther (Cervical)Non-Blood / Qtqbquc0301/09/2025 9:50 AM CST01/09/2025 11:43 AM [employer] Narrative Authorizing ProviderResult TypeResult StatusRaquel Laney Telles DO PATHOLOGY/CYTOLOGYFinal ResultPerforming OrganizationAddressCity/State/ZIP Code Phone Number [facility] [address] [place] [address], from Last 3 Months or Most Recently Relevant to Health Maintenance Insurance * Guarantor: Cyndee Martin TypeRelation to PatientDate of BirthPhone Billing AddressPersonal/YbwpuwRazn2005 [address] [id number] * Guarantor: Samuel Martincochevy TypeRelation to PatientDate of BirthPhone Billing AddressPersonal/CcxybfMvkhoj92/15/1976 [address] [phone] * Guarantor: Vicky MARTIN TypeRelation to PatientDate of BirthPhoneBilling AddressMotor JxngqpkVgbimx92/15/1976 [address] [id number] * Guarantor: Ho MARTIN TypeRelation to PatientDate of BirthPhone Billing AddressPersonal/FamilyMother [address] [place] [address] Care Teams Team MemberRelationshipSpecialtyStart DateEnd Date Ted Pan MD [address] [place] [address] [place] [id number] [facility]06/25/14
--- OUTSIDE RECORDS SUMMARY | 2025-11-17 20:53 | XMS_ITS | Encounter Summary ---
Author Organization [facility] Address [address] [place] [address] Care Team Providers Care Rougher Merchant Mill Name Role Phone Elsewhere, Pcp Primary Care Provider Unavailabl e Encounter Details DateTypeDepartmentCare Team (Latest Contact Info)Mnserjvbech61/24/2025linical Communication Department of Orthopedic Surgery in [place], [place] [address] [place] [address] Lenin Ugalde M.D. [address] [place] [address] Social History Tobacco UseTypesPacks/DayYears UsedDateSmoking Tobacco: NeverPassive [...] 2CommentsUnknownSex and Gender InformationValueDate RecordedSex Assigned at TrteuPccnzu75/06/2022 5:37 PM CSTLegal KqqNgfxzw37/04/2018 6:08 PM CDTGender ZlledarjAasgur35/06/2022 5:37 PM CSTSexual OrientationStraight 01/25/2022 5:37 PM [...]
--- OUTSIDE RECORDS SUMMARY | 2025-11-17 20:53 | XMS_ITS | Encounter Summary ---
Author Organization [facility] Address [address] [place] [address] Care Team Providers Care Seismograph Recorder Name Role Phone Elsewhere, Pcp Primary Care Provider Unavailabl e Encounter Details DateTypeDepartmentCare Team (Latest Contact Info)Ltaefvwgwdv16/28/2025Clinical Communication Department of Orthopedic Surgery in [place], [place] [address] [place] [address] Lenin Ugalde M.D. [address] [place] [address] Social History Tobacco UseTypesPacks/DayYears UsedDateSmoking Tobacco: NeverPassive Smoke Exposure: CurrentSmokeless Tobacco: NeverAlcohol UseStandard Drinks/WeekComments Never0 (1 standard drink = 0.6 oz pure alcohol)[facility] UtilitiesAnswerDate Recorded In the past 12 months has the [employer], gas, oil, or water [employer] threatened to shut off services in your [...] 2CommentsUnknownSex and Gender InformationValueDate RecordedSex Assigned at UanqfLaehti18/06/2022 5:37 PM CSTLegal FdsRctrfu83/04/2018 6:08 PM CDTGender BrxmkoiuAfwphf73/06/2022 5:37 PM CSTSexual OrientationStraight 01/25/2022 5:37 PM [...]
--- OUTSIDE RECORDS SUMMARY | 2025-11-17 20:53 | XMS_ITS | Clinical Summary ---
Author Organization [facility] Address [address] [place] [address] Care Team Providers Care Paint Process Engineer Name Role Phone Elsewhere, Pcp Primary Care Provider Unavailabl e Source Comments Patient records contain information from all sites at [facility]. For routine questions regarding patient records, call [phone] during business hours, M-F 8:00 AM - 5:00 PM Central Time. Record requests for emergency care only can be directed to [phone] at any time.[facility] Allergies No known active allergies Medications MedicationSigDispense QuantityRefillsLast FilledStart DateEnd DateStatus etonogestreL (Nexplanon) 68 mg subdermal implant Inject 1 each under the skin continuously.07/31/2020Active propranoloL (InderaL LA) 120 mg 24 hr capsule Take 1 capsule (120 mg total) by mouth daily. 90 capsule 5Active ubrogepant (Ubrelvy) 100 mg tablet tablet Indications:Migraine HeadacheTake 1 tablet (100 mg total) by mouth as needed for migraine. May repeat dose once after at least 2hours if migraine unresolved. Do not exceed 200 mg in 24 hours. Max 8 days per month 10 tablet 1105Active acetaminophen (TylenoL) 500 mg tablet Take 2 tablets (1,000 mg total) by mouth every 6 (six) hours as needed for pain. 5Active hydrOXYzine (Atarax) 25 mg tablet Take 1 tablet (25 mg total) by mouth every 6 (six) hours as needed for anxiety. 6 tablet 04/24/2025 4:42 PM CDT5Active ondansetron ODT (Zofran-ODT) 8 mg disintegrating tablet Dissolve 8 mg in the mouth as needed for nausea.5Active dextroamphetamine-amphetamine (Adderall) 10 mg tablet Take 10 mg by mouth 2 (two) times a day.5Active celecoxib (CeleBREX) 200 mg capsule Take 1 capsule (200 mg total) by mouth daily. 30 capsule 11/16/2025 10:36 AM CST/6Active traMADoL (Ultram) 50 mg tablet Indications:Acute Pain ExceptionTake 1 tablet (50 mg total) by mouth every 6 (six) hours as needed for moderate pain or score 4-6 of 10. 10 tablet 11/16/2025 10:36 AM 5Active oxyCODONE (Roxicodone) 5 mg immediate release tablet Indications:Acute Pain ExceptionTake 1 tablet (5 mg total) by mouth every 4 (four) hours as needed for severe pain or score 7-10 of10. 5 tablet 11/16/2025 10:36 AM 5Active sennosides (senna) 8.6 mg tablet Take 1 tablet (8.6 mg total) by mouth daily for 15 days. 100 tablet /ctive ibuprofen 200 mg tablet Take 600 mg by mouth every 6 (six) hours as needed for pain.11/17/2025 Discontinued(Stop Taking at Discharge) multivitamin-minerals tablet Take 1 tablet by mouth daily.11/17/2025Discontinued(Stop Taking at Discharge) Active Problems ProblemNoted DateDiagnosed DateDysplasia Hip Acquired Left11/17/2025Pain Hip Left04/25/2025Injury Nerve Femoral Initial Left04/25/2025ftercare Musculoskeletal Brbxqzd4204/22/2025Deficiency Vitamin B1201/30/2022Loss Hair Personal Xanqyiq2001/30/2022eficiency Vitamin D001/29/2022Migraine Headache 01/29/2022besity Body Mass Index 30-39.9 Adult01/29/20224756Qmlyojk26/10/2022 Dyspnea On Gwltziji05/10/1591Tuhbrmzu75/10/2022ain Right Lower Quadrant 01/29/2022Gastroesophageal Reflux Disease Without Ktcabjihtyq47/10/2022ain Knee Right01/29/20221695Amlqbcq89/06/2019Attention Deficit Hyperactivity Disorder Predominantly Inattentive Type03/27/2019Depression Major One Episode Moderate 03/27/2019Encounter For Screening For Other Viral Diseases (COVID-19) Preoperative ExamPain Hip RightTear Hip Labral Initial Right Resolved Problems ProblemNoted DateDiagnosed DateResolved DatePositive Antinuclear Antibody Abnormal Jehrwxnl10/ Encounters DateTypeDepartmentCare KqinOnmffghhhnz12/26/2025 7:38 AM CSTAnesthesia Event RST [facility] MA[facility] OR [address] [place] [address] Homero Stauffer M.D. Klink, Jodi, RMervin 11/16/2025 7:25 AM STONEWORKING SANDER - 11/16/2025 9:45 AM CSTSurgery RST [facility] OR [address] [place] [address] Johnnie Hong M.D. REMOVAL HARDWARE PELVIS.11/16/2025 5:44 AM STONEWORKING SANDER - 11/17/2025 12:03 PM CSTHospital Encounter [facility], Eighth Floor [address] [place] [address] Johnnie Hong M.D. Discharge Disposition: Home or Self Care5Clinical Communication Department of Orthopedic Surgery in [place], [place] [address] [place] [address] Lenin Ugalde M.D. 10/19/2025 10:45 AM CSTOffice Visit Department of Orthopedic Surgery in [place], [place] [address] [place] [address] Lenin Ugalde M.D. Pain Hip Left (Primary Dx); Aftercare Developmental Dislocation Hip; Dislocation Hip Dysplasia Developmental Left10/19/2025 9:13 AM STONEWORKING SANDER - 10/19/2025 11:59 PM CSTHospital Encounter Department of Radiology, [facility], in [place], [place] [address] [place] [address] Lenin Ugalde M.D. Aftercare Developmental Dislocation Hip; Dislocation Hip Dysplasia Developmental Left Discharge Disposition: Home or Self Care5Clinical Communication Department of Orthopedic Surgery in [place], [place] [address] [place] [address] Lenin Ugalde M.D. 10/16/2025 9:45 AM CSTClinical Communication Virtual Review in [place], [place] [address] [place] [address] Pre-visit Intakefrom Last 3 Months Immunizations ImmunizationAdministration DatesNext Kyf6sGXO (discontinued)01/30/2015, 08/27/2014,06/25/2014DTaP (Infanrix, Tripedia)04/19/2007,07/21/2004,2003, 2003,2003DTaP / Hep B / IPV (Pediarix)2003,2003, 2003HepA Pediatric/Zuzewccaxt86/09/2017,09/09/2016HepB Pediatric/Obesyvhixe2003Hib (PRP-OMP) (PedvaxHIB)2003,2003, 2003Hib (PRP-T) (ACTHIB, HIBERIX)2003IPV04/19/2007,2003, 2003,2003MCV4 (Menveo)06/07/2019,06/25/2014MMR04/19/2007,2004 PCV7 (discontinued)2003,2003,2003Tdap06/25/2014VAR06/04/2008, 2004influenza trivalent vaccine (6 months and older)(PF)01/29/2022( Deferred: Other) Family History Medical HistoryRelationNameCommentsEndometriosisAuntCierramaternal aunt AppendicitisBrotherDepressionMaternal GrandfathermyrthDiabetesMaternal GrandfathermyrthHyperlipidemia (high cholesterol)Maternal GrandfathermyrthSkin cancerMaternal GrandfathermyrthTransient ischemic attackMaternal Grandfather myrthBreast cancer (in one breast)Maternal GrandmotherJoan BrayEndometriosis Maternal GrandmotherJoan BrayAnxiety disorderMothersarah bednarCancerMothersarah bednarCervical cancerCervical cancerMothersarah bednarCervical cancerColon polypsMothersarah bednarDepressionMothersarah bednarEndometrial cancerMother butch bednarEndometriosisMothersarah bednarFibromyalgiaMothersarah sasha DiabetesPaternal Grandmotherelizabeth bednarRheumatoid arthritis (RA)Paternal Grandmotherelizabeth bednarRelationNameStatusCommentsAuntCierraAliveBrother Maternal GrandfathermyrthAliveMaternal GrandmotherJoan BrayAliveMothersarah bednarAlivePaternal Grandmotherelizabeth bednarAlive Social History Tobacco UseTypesPacks/DayYears UsedDateSmoking Tobacco: NeverPassive [...] RecordedIn the past 12 months has the [employer], gas, oil, or water company threatened to shut off services in your home?No11/16/2025Postpartum DepressionAnswerDate RecordedPHQ-9 Total Score (max 27)Housing StabilityAnswerDate RecordedWhat is your living situation today?I have a steady place to live11/16/2025EducationAnswerDate RecordedWhat is the highest level of school you have completed or the highest degree you have received?Associate degree: occupational, technical, or vocational program 2CommentsNoSex and Gender InformationValueDate RecordedSex Assigned at IfqklEugqje68/06/2022 5:37 PM CSTLegal MsgIipnxj43/04/2018 6:08 PM CDTGender QpsrnmuvBcugzb45/06/2022 5:37 PM CSTSexual OrientationStraight 01/25/2022 5:37 PM STONEWORKING SANDER Last Filed Vital Signs Vital SignReadingTime TakenCommentsBlood Grcivpxu720/80101/18/2025 11:26 AM STONEWORKING SANDER Rdnli293211/17/2025 11:26 AM AJIXqagtgpekil80.8 ??C (98.2 ??F)11/17/2025 9:50 AM CSTRespiratory Ofji938501/18/2025 11:26 AM CSTOxygen Ahxypjospp84%11/17/2025 11:26 AM CSTInhaled Oxygen Concentration--Kmpsrk53.3 kg (196 lb 13.9 oz)11/16/2025 6:52 AM MQUGyyxup036 cm (5' 2.6)11/16/2025 6:52 AM CSTBody Mass Index35.32 11/16/2025 6:52 AM STONEWORKING SANDER Plan of Treatment Health MaintenanceDue DateLast DoneCommentsCervical/Vaginal Cancer Screening 2003Hepatitis C Mpfnwfnoz2003COVID-19 Vaccine ( season) /, 06/18/2021Influenza Vaccine (#1)2025Depression Monitoring (PHQ-9)507/DTaP,Tdap,and Td Vaccines (8 - Td or Tdap) /, 06/25/2014, 04/19/2007, Additional history existsHepatitis B VtcknwgnYozwjdshn2003, 2003, 2003, Additional history exists Pneumococcal vaccine (0-49 years)Aged Out2003, 2003, 2003No longer eligible based on patient's age to complete this topicIPV Vaccines Aghgfrowc00/29/2007, 2003, 2003, Additional history existsVaricella GalssjmeEisdmrykq75/14/2008, 2004HPV KtvowwmzUsertdodl61/11/2015, 08/27/2014, 06/25/2014Meningococcal MjnrfswKbuxniebs91/17/2019, 06/25/2014 Depression Monitoring (PHQ-9 for quality tracking)Vamrnsdrw33/22/2025 Medical Devices ImplantedTypeAreaManufacturerDevice IdentifierShelf Expiration DateModel / Serial / LotAnchor Pl Pk Hip Mini 2.4x8.9 - [id number] Implanted:Qty: 4 [facility]08/2020 [facility] pins/screws/rodsRight: [id number]/R-2924PHS / / [id number] My Jennifer Implanted:Qty: 1 on 04/20/2025 by [facility] e.g. pins/screws/rodsUnknownCASE #384370 / / Description:[id number] CASE # [id number] MEDACTA MY PADSuture Conway Peek Pushlock L12.5 Dia2.9 - [id number] Implanted:Qty: 1 on 04/20/2025 by [facility].g. pins/screws/rodsLeft: [id number]/8AR- 2923PHS / / [id number] [place] Peek Pushlock L12.5 Dia2.9 - [id number] Implanted:Qty: 1 on 04/20/2025 by [facility] e.g. pins/screws/rodsLeft: [id number]/9AR- 2923PHS / / [id number] Device-NexplanonIntrauterine DeviceLeft: ArmExplantedType AreaManufacturerDevice IdentifierShelf Expiration DateModel / Serial / LotScrw Lcd St Fthrd 4.5x72 - [id number] Implanted:Qty: 1 on 05/08/2020 at [facility] Explanted:Qty: 1 on 11/07/2020 [facility].g[facility] pins/screws/rodsRight: HipDepuy Oazdham179.872 / / Scrw Lcd St Fthrd 4.5x90 - [id number] Implanted:Qty: 1 on 05/08/2020 at [facility] Explanted:Qty: 1 on 11/07/2020 [facility].g. pins/screws/rodsRight: HipDepuy Tlkmnlm730.890 / / Scrw Lcd St Fthrd 4.5x62 - [id number] Implanted:Qty: 1 on 05/08/2020 at [facility] Explanted:Qty: 1 on 11/07/2020 [facility] e.g. pins/screws/rodsRight: HipDepuy Ulqvnvg286.862 / / Scrw Lcd St Fthrd 4.5x85 - [id number] Implanted:Qty: 1 on 04/20/2025 by Lenin Ugalde M.D. at [facility] Explanted:Qty: 1 on 11/16/2025 [facility] e.g. pins/screws/rodsLeft: HipDepuy Qtkwvkf111.885 / / Scrw Lcd St Fthrd 4.5x90 - [id number] Implanted:Qty: 1 on 04/20/2025 by Lenin Ugalde M.D. at [facility] Explanted:Qty: 1 on 11/16/2025 at [facility] e.g. pins/screws/rodsLeft: HipDepuy Ezsnals334.890 / / Scrw Lcd St Fthrd 4.5x72 - [id number] Implanted:Qty: 1 on 04/20/2025 by Lenin Ugalde M.D. at [facility] Explanted:Qty: 1 on 11/16/2025 at [facility] e.g. pins/screws/rodsLeft: HipDepuy Pscygjh421.872 / / Procedures Procedure NamePriorityDate/TimeAssociated DiagnosisCommentsADULT OXYGEN THERAPY Ncpplnu8311/16/2025 8:33 AM CSTDX PELVIS 1-2 VIEWSRAD - Routine (most inpatients and all outpatients)11/16/2025 8:32 AM STONEWORKING SANDER LDA ANE NON-SURGICAL DERYIHGjrzgyg08/26/2025 7:44 AM STONEWORKING SANDER ANTIBODY PGKRDAXKPIWCGMVBWQ92/26/2025 6:55 AM STONEWORKING SANDER TYPE AND HMYUYNNWAU57/26/2025 6:55 AM STONEWORKING SANDER CBC WITHOUT DIFFERENTIAL, BSTAT101/17/2025 6:55 AM STONEWORKING SANDER CREATININE WITH EGFR, S/PSTAT101/17/2025 6:55 AM STONEWORKING SANDER DX HIP AND PELVIS LEFT 4+ VIEWSRAD - Routine (most inpatients and all outpatients)10/19/2025 9:32 AM STONEWORKING SANDER Aftercare Developmental Dislocation Hip Dislocation Hip Dysplasia Developmental Left from Last 3 Months Results * DX Pelvis 1-2 Views (11/16/2025 8:32 AM STONEWORKING SANDER)Anatomical RegionLaterality ModalityPelvis, Musculoskeletal RST LOS, Musculoskeletal ARZ LOS, Muskuloskeletal FLA LOSN/ADigital RadiographySpecimen (Source)Anatomical Location / LateralityCollection Method / VolumeCollection TimeReceived Time Impressions 11/16/2025 8:49 AM STONEWORKING SANDER Screws have been removed from the pelvis since 10/19/2025. No residual hardware seen. Left periacetabular osteotomy. 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 Narrative 11/16/2025 8:49 AM STONEWORKING SANDER EXAM: DX PELVIS 1-2 VIEWS Procedure Note Shola Bess M.D. - 11/16/2025 EXAM: DX PELVIS 1-2 VIEWS IMPRESSION: Screws have been removed from the pelvis since 10/19/2025. No residualhardware seen. Left periacetabular osteotomy. Mild arthritic changes ofboth hips with cam morphology. Authorizing ProviderResult TypeResult StatusRaangelito Ugalde M.D.IM DIAGNOSTIC IMAGING PROCEDURESFinal Result * LDA ANE NON-SURGICAL AIRWAY (11/16/2025 7:44 AM STONEWORKING SANDER) Narrative Karla Monroy R.N. - 11/16/2025 7:44 AM STONEWORKING SANDER Karla Monroy R.N. 11/16/2025 7:55 AM Airway [...] Notable Events: no complications Authorizing ProviderResult TypeResult StatusHomero Stauffer M.D.ANESTHESIA ORDERABLESFinal Result * Antibody Identification, Erythrocytes (11/16/2025 6:55 AM STONEWORKING SANDER)ComponentValue Ref RangeTest MethodAnalysis TimePerformed AtPathologist SignatureAntibody IdentificationNo antibody jubkjkxx08/26/2025 9:51 AM CSTDTLSpecimen (Source) Anatomical Location / LateralityCollection Method / VolumeCollection Time Received Time11/16/2025 6:55 AM CST11/16/2025 7:40 AM STONEWORKING SANDER Narrative [facility] - 11/16/2025 9:51 AM STONEWORKING SANDER Specimen Information: Specimen ID: [id number] Specimen Collection Start Date: 11/16/2025 ??6:55 AM Specimen Received Date: 11/16/2025 ??7:40 AM Specimen ID: [id number] Specimen Collection Start Date: 11/16/2025 ??6:55 AM Specimen Received Date: 11/16/2025 ??7:40 AM Authorizing ProviderResult TypeResult Martha Ugalde M.D.LAB BLOOD BANK TEST ORDERABLESFinal ResultPerforming OrganizationAddressCity/State/ZIP Code Phone Number [facility] [address] [place] [address], [facility] DTMay[facility] [address] [place] [address] * CBC without Differential (11/16/2025 6:55 AM STONEWORKING SANDER)ComponentValueRef RangeTest MethodAnalysis TimePerformed AtPathologist FxptozkvgXjgxxrczdh09.611.6 - 15.0 g/dL11/16/2025 7:25 AM VVVGGYHHiovnbkvfa57.535.5 - 44.9 %11/16/2025 7:25 AM CSTMETHErythrocytes4.713.92 - 5.13 x10(12)/L101/17/2025 7:25 AM LIGVHEFNHW57.9 78.2 - 97.9 fL11/16/2025 7:25 AM CSTMETHRBC Distrib Width12.712.2 - 16.1 % 11/16/2025 7:25 AM CSTMETHPlatelet Ucmft781769 - 371 x10(9)/L101/17/2025 7:25 AM CSTMETHLeukocytes8.13.4 - 9.6 x10(9)/L101/17/2025 7:25 AM CSTMETHSpecimen (Source)Anatomical Location / LateralityCollection Method / VolumeCollection TimeReceived TimeBlood (Blood, Venous)11/16/2025 6:55 AM CST11/16/2025 7:22 AM STONEWORKING SANDER Narrative Authorizing ProviderResult TypeResult StatusLeinn Ugalde M.D.LAB BLOOD ADD-ON Final ResultPerforming OrganizationAddressCity/State/ZIP CodePhone Number [facility] [address] [place] [address], [facility] [address] [place] [address] * Type and Screen (with Reflex Antibody ID) (11/16/2025 6:55 AM STONEWORKING SANDER)Component ValueRef RangeTest MethodAnalysis TimePerformed AtPathologist SignatureABORhO PosNot ilggootnnd97/26/2025 8:15 AM CSTETRMAntibody ScreenPositiveNegative 11/16/2025 8:46 AM CSTETRMType & Screen Vljjnccfup04/29/2025 23:5911/16/2025 8:15 AM CSTETRMTesting LocationRoche[place] DEFAULT 11/16/2025 7:40 AM CSTETRMSpecimen (Source)Anatomical Location / Laterality Collection Method / VolumeCollection TimeReceived TimeBlood (Blood, Venous) 11/16/2025 6:55 AM CST11/16/2025 7:40 AM STONEWORKING SANDER Narrative Authorizing ProviderResult TypeResult Martha Ugalde M.D.LAB BLOOD BANK TEST ORDERABLESFinal ResultPerforming OrganizationAddressCity/State/ZIP Code Phone Number [facility] [address] [place] [address], [facility] E[facility] [address] [place] [address] * Creatinine with Estimated GFR (11/16/2025 6:55 AM STONEWORKING SANDER)ComponentValueRef Range Test MethodAnalysis TimePerformed AtPathologist SignatureCreatinine0.660.59 - 1.04 mg/dL11/16/2025 8:03 AM CSTMETHEstimated GFR (eGFR)>90>=60 mL/min/BSA 11/16/2025 8:03 AM CSTMETHComment: Estimated GFR calculated using the 2020 CKD_EPI creatinine equation. Specimen (Source)Anatomical Location / LateralityCollection Method / Volume Collection TimeReceived TimeBlood (Blood, Venous)11/16/2025 6:55 AM STONEWORKING SANDER 11/16/2025 7:22 AM STONEWORKING SANDER Narrative Authorizing ProviderResult TypeResult Martha Ugalde M.D.LAB BLOOD ADD-ON Final ResultPerforming OrganizationAddressCity/State/ZIP CodePhone Number [facility] [address] [place] [address], [facility] [address] [place] [address] * DX Hip And Pelvis Left 4+ Views (10/19/2025 9:32 AM STONEWORKING SANDER)Anatomical Region LateralityModalityLower Extremity, Pelvis, Hip, Musculoskeletal RST LOS, Musculoskeletal ARZ LOS, Muskuloskeletal FLALOSLeftDigital RadiographySpecimen (Source)Anatomical Location / LateralityCollection Method / VolumeCollection TimeReceived Time Impressions 10/19/2025 10:00 AM STONEWORKING SANDER Postoperative changes of periacetabular osteotomy left hip with healing changes since 06/21/2025. 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 Postoperative changes in the right hip from right JENNIFER. Small osseous fragment lateral to the right femoral head. Narrative 10/19/2025 10:00 AM STONEWORKING SANDER EXAM: DX HIP AND PELVIS LEFT 4+ VIEWS Procedure Note Samuel Hobson M.D. - 10/19/2025 EXAM: DX HIP AND PELVIS LEFT 4+ VIEWS IMPRESSION: Postoperative changes of periacetabular osteotomy left hip with healingchanges since 06/21/2025. 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 Small osseousfragment lateral to the right femoral head. Authorizing ProviderResult TypeResdami Ugalde M.D.IMG DIAGNOSTIC IMAGING PROCEDURESFinal Result from Last 3 Months Insurance * Guarantor: Karl Martin TypeRelation to PatientDate of PhoneBilling AddressPersonal/CauqueTgri2003 [address] [address] * Guarantor: Samuel MartinAccount TypeRelation to PatientDate of PhoneBilling AddressPersonal/FqlrxoDnyqnf10/15/1976 [address] [place] [address] Advance Directives For more information, please contact: [phone] * Full Code (Latest Code Status on File) Date ActivatedDate GmrrduhlsreZmvfbjer74/26/2025 9:24 AM11/17/2025 2:09 PM QuestionAnswerCommentsFull Code:* Not Discussed Due to:* Patient not available * Full Code Date ActivatedDate NhoeumbsregNcdddnwy66/26/2025 6:39 AM11/16/2025 9:24 AM QuestionAnswerCommentsFull Code:* Not Discussed Due to:* Patient not available * Full Code Date ActivatedDate InactivatedComments04/20/2025 5:22 PM04/25/2025 2:57 PMQuestion AnswerCommentsFull Code:* Not Discussed Due to:* Patient not available * Full Code Date ActivatedDate InactivatedComments04/20/2025 7:01 AM04/20/2025 5:22 PMQuestion AnswerCommentsFull Code:* Not Discussed Due to:* Patient not available Care Teams Team MemberRelationshipSpecialtyStart DateEnd Date Elsewhere, Pcp PCP - GeneralInternal Medicine03/21/25
[2025-11-17 20:54] LABS: Slide Review Reflex No
[2025-11-17 21:13] LABS: Chloride* 105 mmol/L (96-114); Potassium* 4.0 mmol/L (3.6-5.1); Sodium* 136 mmol/L (135-149)
[2025-11-17 21:16] LABS: Anion Gap 6 mEq/L (7-15); Blood Urea Nitrogen* 10 mg/dL (5-24); Calcium* 9.2 mg/dL (8.4-10.6); Carbon Dioxide* 25 mmol/L (20-32); Creatinine* 0.7 mg/dL (0.5-1.5); Estimated Glomerular Filt Rate 125 ml/min; Glucose* 93 mg/dL (60-115)
--- NOTE | 2025-11-17 21:59 | CRLHL7_ITS ---
For Patients: As a result of the Century Cures Act, medical imaging exams and procedure reports are released immediately into your electronic medical record. You may view this report before your referring provider. If you have questions, please contact your health care provider. INDICATION: Postoperative pain. Patient is status post removal of hardware for prior periacetabular osteotomy. TECHNIQUE: Multiplanar CT examination of the left hip was performed without the use of intravenous contrast. COMPARISON: None. FINDINGS: Postoperative changes of prior left periacetabular osteotomy with recent reported removal of surgical hardware. There is a persistent non healed pubic root osteotomy site (series 2, image 44); series 3, image 145) with minimal callus formation inferiorly. Ischial and iliac osteotomy sites appear well healed. No definite acute fracture, dislocation, or suspicious osseous lesion identified. No significant hip joint effusion. No soft tissue mass or fluid collection. Visualized pelvic contents demonstrate no acute or suspicious abnormality. IMPRESSION: 1. Left periacetabular osteotomy with persistent non healed pubic root osteotomy site, concerning for delayed healing. 2. Ischial and iliac osteotomy sites healed. 3. No definite acute fracture. Please note that all CT scans at this facility use dose modulation, iterative reconstruction, and/or weight-based dosing when appropriate to reduce radiation dose to as low as reasonably achievable. Dictated by Jalen Quiroz MD @ 11/17/2025 11:52:41 PM (Electronically Signed)
[2025-11-17] MEDS: OxyCODONE/APAP 5-325 TABLET 2 TAB PO (22:11)
[2025-11-17 23:01] VITALS: BP 117/72; PULSE 55; RESP 16; O2SAT 97
== END 2025-11-18 00:31 | disposition home or self-care (01) ==
PROVIDERS: Emergency Provider Family Medicine; PCP Family Medicine
DX: G89.18 Other acute postprocedural pain (principal); M25.552 Pain in left hip; R33.9 Retention of urine, unspecified
CPT/HCPCS: 36415; 73700; 80048; 85025; 96361; 96374; 96375; 99284; 99285; A9270; J1171; J1885; J7030